=== PATIENT | female | born 1940 | race Caucasian/White ===

== ENCOUNTER 2017-05-09 15:09 | Inpatient (IN) | payer MEDICARE ==
[~2017-05-09] VITALS: Ht 157.5 cm; Wt 50.3 kg
--- NOTE | 2017-05-09 06:00 | NUR ---
continues to sleep. no distress noted.
[2017-05-09] MEDS ORDERED: Z GUARD REMEDY PASTE 57 GM TUBE TOP PRN (18:30)
[2017-05-09 20:00] VITALS: BP 109/52
[2017-05-09] MEDS ORDERED: ENOX40DI SQ (20:10)
[2017-05-09] MEDS ORDERED: METO-295 PO ×2 (20:10)
[2017-05-09] MEDS ORDERED: ASPI-605 PO (20:10)
[2017-05-09] MEDS ORDERED: SENN8.6T73 PO (20:10)
[2017-05-09] MEDS ORDERED: LORA1TAB PO (20:10)
[2017-05-09] MEDS ORDERED: HYDR-548 PO (20:10)
[2017-05-09] MEDS ORDERED: DOXE10CA2 PO (20:10)
[2017-05-09] MEDS ORDERED: PANT40TA4 PO (20:10)
[2017-05-09] MEDS ORDERED: POLY255P2 PO (20:10)
[2017-05-09] MEDS ORDERED: ONDA4TAB11 PO (20:10)
--- NOTE | 2017-05-09 20:12 | NUR ---
PT ADMITTED IN [facility] AT 1800. PT TAKEN ON A GURNEY. PT STABLE VITAL SIGNS. MED RECON DONE BY DR ROMAN. PT STATES THAT SHE IS HAVING STOMACH PAIN . INCISIONS PICTURES DONE. INITIAL PHYSICAL ASSESSMENT AND GENERAL QUESTIONS DONE. WILL CONTINUE TO ENDORSE ORDERS TO VEST MAKER NURSE.
[2017-05-09] MEDS ORDERED: BISACODYL 10 MG SUPP.RECT RC ONE (20:30)
[2017-05-09] MEDS ORDERED: LORAZEPAM 1 MG TABLET PO SCH (21:00)
[2017-05-09] MEDS ORDERED: DOXEPIN 10 MG CAPSULE PO SCH (21:45)
[2017-05-09] MEDS ORDERED: SENNOSIDES 1 TABLET PO SCH (21:45)
--- NOTE | 2017-05-09 22:00 | NUR ---
received to care, lying in bed, c/o severe constipation, anxiety, and pain. PRN dulcolax suppository was given at 2153. awaiting further orders.
[2017-05-09] MEDS: ONDANSETRON ODT 4 MG TAB.RAPDIS SL PRN (22:17)
[2017-05-09] MEDS ORDERED: SENNOSIDES 1 TABLET ONE (22:21)
[2017-05-09] MEDS ORDERED: ONDANSETRON HCL 4 MG TABLET ONE (22:21)
[2017-05-09] MEDS ORDERED: LORAZEPAM 1 MG TABLET ONE (22:22)
--- NOTE | 2017-05-09 23:00 | NUR ---
PRN zofran was given at 2216, for nausea, and PRN ativan was given at 2227, for anxiety. pt states some relief, but continues to request PRN pain medication. Dr JAMESON WAS PAGED.
[2017-05-10] MEDS ORDERED: HYDROMORPHONE HCL 2 MG TABLET PO PRN
--- NOTE | 2017-05-10 00:15 | NUR ---
PRN ORDER WAS GIVEN FOR NORCOFROM DR JAMESON, BUT PT IS ALLERGIC TO TYLENOL, CODEINE, AND HYDROCODONE, PER THE CHART. PT STATES THAT SHE Had BOTH NORCO, AND MORPHINE, AT [facility], WITHOUT ANY REACTIONS. DR YEPEZ WA SPAGED, AND HE GAVE AN ORDER FOR PRN DILAUDID, AND STATED IT WAS OK TO GIVE. MED WAS GIVEN AT THIS TIME, FOR LOWER ABDOMINAL PAIN 10/10, ON PAIN SCALE.
[2017-05-10] MEDS ORDERED: HYDROMORPHONE HCL 2 MG TABLET ONE (00:22)
--- NOTE | 2017-05-10 01:00 | NUR ---
APPEARS TO BE ASLEEP. NO DISTRESS NOTED.
[2017-05-10] MEDS ORDERED: PANTOPRAZOLE SODIUM 40 MG TABLET.DR PO SCH (07:00)
[2017-05-10 07:30] LABS: BASOPHILS % (AUTO) 0.1 % (0.0-2.0); EOSINOPHILS # (AUTO) 0.1 K/uL (0.0-0.7); EOSINOPHILS % (AUTO) 0.6 % (0.0-7.0); HEMATOCRIT 25.4 % (37-47); HEMOGLOBIN 8.7 G/DL (12.0-16.0); LYMPHOCYTES # (AUTO) 0.6 K/UL (0.8-4.8); LYMPHOCYTES % (AUTO) 4.4 % (20.5-51.5); MEAN CORPUSCULAR HEMOGLOBIN 31.9 UUG (27.0-31.0); MEAN CORPUSCULAR HGB CONC 34 g/dL (32.0-37.0); MEAN CORPUSCULAR VOLUME 93.1 FL (81.0-99.0); MONOCYTES # (AUTO) 1.1 K/UL (0.1-1.30); MONOCYTES % (AUTO) 8.4 % (0.0-11.0); NEUTROPHILS # (AUTO) 10.9 K/UL (1.8-8.9); NEUTROPHILS % (AUTO) 86.5 % (38.5-71.5); PLATELET COUNT (AUTO) 207 K/UL (150-450); RED BLOOD CELL COUNT(AUTO) 2.73 MIL/UL (4.2-5.4); WHITE BLOOD COUNT (AUTO) 12.7 K/UL (4.0-11.2)
[2017-05-10 08:08] LABS: ALKALINE PHOSPHATASE 61 U/L (50-136); ASPARTATE AMINOTRANSFERASE 21 U/L (15-37); BILIRUBIN,TOTAL 0.6 mg/dL (0.2-1.0); CARBON DIOXIDE 21 mmol/L (21-32); CHLORIDE 95 mmol/L (98-107); CHOLESTEROL 148 mg/dL (<200); CREATININE 4.5 mg/dL (0.6-1.3); GLUCOSE 111 mg/dL (74-106); HDL CHOLESTEROL 63 mg/dL (40-60); MAGNESIUM 2.1 mg/dL (1.8-2.4); PHOSPHOROUS 7.4 mg/dL (2.5-4.9); POTASSIUM 3.9 mmol/L (3.5-5.1); TOTAL PROTEIN, SERUM 6.1 g/dL (6.4-8.2); TRIGLYCERIDES 66 MG/DL (30-150); UREA NITROGEN, BLOOD 31 mg/dL (7-18)
[2017-05-10] MEDS ORDERED: MORPHINE SULFATE 4 MG/1 ML DISP.SYRIN IV PRN (08:15)
[2017-05-10 08:24] LABS: BAND % (MANUAL) 5 % (0-10); EOSINOPHILS % (MANUAL) 1 % (0-8); LYMPHOCYTES % (MANUAL) 7 % (20-40); MONOCYTES % (MANUAL) 13 % (2-10); NEUTROPHILS % (MANUAL) 74 % (42-75)
[2017-05-10] MEDS ORDERED: OXYCODONE/APAP 5-325 MG TABLET PO PRN (08:45)
[2017-05-10] MEDS: ONDANSETRON ODT 4 MG TAB.RAPDIS SL PRN (08:50)
[2017-05-10 08:59] LABS: ALANINE AMINOTRANSFERASE 17 U/L (14-59)
[2017-05-10] MEDS ORDERED: POLYETHYLENE GLYCOL 3350 238 GM POWDER PO SCH (09:00)
[2017-05-10] MEDS ORDERED: MIRALAX 17 GM POWD.PACK PO SCH (09:00)
[2017-05-10] MEDS ORDERED: ENOXAPARIN SODIUM 40 MG/0.4 ML DISP.SYRIN SQ SCH (09:00)
[2017-05-10] MEDS ORDERED: ASPIRIN EC 81 MG TABLET.DR PO SCH (09:00)
[2017-05-10 09:28] VITALS: BP 102/67
[2017-05-10 09:43] LABS: IRON, SERUM 10 ug/dL (50-175)
--- NOTE | 2017-05-10 10:50 | NUR ---
NURSING: PATIENT IS TRANSFERRED TO MED SURG UNIT, BED 225, PER DR. YEPEZ ORDER. NO DISTRESS NOTED. PT REMAINS ON O2 CANNULA AT 2LPM. REPORT GIVEN TO ROGER BECERRIL.
[2017-05-10 11:46] VITALS: BP 105/60
[2017-05-10] MEDS ORDERED: LORAZEPAM 1 MG TABLET PO SCH (21:00)
[2017-05-11 07:14] LABS: ALKALINE PHOSPHATASE 56 U/L (50-136); ASPARTATE AMINOTRANSFERASE 15 U/L (15-37); BILIRUBIN,TOTAL 0.4 mg/dL (0.2-1.0); CARBON DIOXIDE 24 mmol/L (21-32); CHLORIDE 108 mmol/L (98-107); GLUCOSE 116 mg/dL (74-106); MAGNESIUM 2.2 mg/dL (1.8-2.4); PHOSPHOROUS 1.8 mg/dL (2.5-4.9); POTASSIUM 3.5 mmol/L (3.5-5.1); TOTAL PROTEIN, SERUM 4.8 g/dL (6.4-8.2); UREA NITROGEN, BLOOD 13 mg/dL (7-18)
[2017-05-11 07:27] LABS: EOSINOPHILS # (AUTO) 0.1 K/uL (0.0-0.7); LYMPHOCYTES # (AUTO) 0.4 K/UL (0.8-4.8); MEAN CORPUSCULAR VOLUME 92.1 FL (81.0-99.0); MONOCYTES # (AUTO) 0.5 K/UL (0.1-1.30)
[2017-05-11 07:28] LABS: BASOPHILS % (AUTO) 0.2 % (0.0-2.0); EOSINOPHILS % (AUTO) 1.4 % (0.0-7.0); LYMPHOCYTES % (AUTO) 7.5 % (20.5-51.5); MEAN CORPUSCULAR HEMOGLOBIN 30.6 UUG (27.0-31.0); MEAN CORPUSCULAR HGB CONC 33 g/dL (32.0-37.0); MONOCYTES % (AUTO) 9.3 % (0.0-11.0); NEUTROPHILS # (AUTO) 4.7 K/UL (1.8-8.9); NEUTROPHILS % (AUTO) 81.6 % (38.5-71.5); PLATELET COUNT (AUTO) 173 K/UL (150-450)
[2017-05-11 07:33] LABS: RED BLOOD CELL COUNT(AUTO) 2.28 MIL/UL (4.2-5.4)
[2017-05-11 07:34] LABS: WHITE BLOOD COUNT (AUTO) 5.7 K/UL (4.0-11.2)
[2017-05-11 08:11] LABS: ALANINE AMINOTRANSFERASE 8 U/L (14-59)
[2017-05-12] MEDS ORDERED: MULT1TAB73 PO (11:43)
[2017-05-12] MEDS ORDERED: CALC-555 PO (11:43)
[2017-05-12] MEDS ORDERED: ALBU2.5V7 NEB (11:43)
--- NOTE | 2017-05-12 17:00 | NUR ---
RECEIVED PATIENT FROM MED-SURG UNIT IN STABLE CONDITION VIA HOSPITAL BED. IV D5NS 1L INFUSING WELL IN RIGHT ARM AT 80ML/HR. INTACT WYATT CATHETER DRAINING TO YELLOW COLORED URINE. WITH V/S OF T- 96.8 , RR- 14, IL-77 O2 SAT-98%, BP-135/87
[2017-05-12 20:00] VITALS: BP 120/71
[2017-05-12] MEDS ORDERED: SENNOSIDES 1 TABLET PO SCH (23:00)
[2017-05-12] MEDS ORDERED: ALBUTEROL SULFATE 2.5 MG/3 ML NEBU NEB PRN (23:00)
[2017-05-12] MEDS ORDERED: HYDROCODONE/APAP 10-325 MG TABLET ONE (23:47)
[2017-05-12] MEDS ORDERED: SENNOSIDES 1 TABLET ONE (23:47)
[2017-05-13] MEDS: HYDROCODONE/APAP 10-325 MG TABLET PO PRN (00:05)
[2017-05-13] MEDS: DOXEPIN 10 MG CAPSULE PO SCH ×2 (00:29→20:27)
[2017-05-13] MEDS ORDERED: DOXEPIN 10 MG CAPSULE ONE (00:34)
[2017-05-13] MEDS ORDERED: LORAZEPAM 1 MG TABLET ONE (00:35)
[2017-05-13] MEDS: LORAZEPAM 1 MG TABLET PO PRN (00:40)
[2017-05-13 08:00] VITALS: BP 124/83
[2017-05-13 08:05] LABS: BASOPHILS % (AUTO) 0.6 % (0.0-2.0); EOSINOPHILS # (AUTO) 0.3 K/uL (0.0-0.7); EOSINOPHILS % (AUTO) 4.6 % (0.0-7.0); HEMATOCRIT 32.1 % (37-47); HEMOGLOBIN 10.9 G/DL (12.0-16.0); LYMPHOCYTES # (AUTO) 1.2 K/UL (0.8-4.8); LYMPHOCYTES % (AUTO) 18.8 % (20.5-51.5); MEAN CORPUSCULAR HEMOGLOBIN 31.1 UUG (27.0-31.0); MEAN CORPUSCULAR HGB CONC 34 g/dL (32.0-37.0); MONOCYTES # (AUTO) 0.7 K/UL (0.1-1.30); MONOCYTES % (AUTO) 11.1 % (0.0-11.0); NEUTROPHILS # (AUTO) 4.2 K/UL (1.8-8.9); NEUTROPHILS % (AUTO) 64.9 % (38.5-71.5); RED BLOOD CELL COUNT(AUTO) 3.49 MIL/UL (4.2-5.4); WHITE BLOOD COUNT (AUTO) 6.4 K/UL (4.0-11.2)
[2017-05-13 08:11] LABS: PLATELET COUNT (AUTO) 269 K/UL (150-450)
[2017-05-13] MEDS: PANTOPRAZOLE SODIUM 40 MG TABLET.DR PO SCH (08:11)
[2017-05-13] MEDS ORDERED: Z GUARD REMEDY PASTE 57 GM TUBE TOP PRN (08:30)
[2017-05-13] MEDS ORDERED: MORPHINE SULFATE 4 MG/1 ML DISP.SYRIN IV PRN (08:30)
[2017-05-13] MEDS ORDERED: ONDANSETRON ODT 4 MG TAB.RAPDIS SL PRN (08:30)
[2017-05-13] MEDS ORDERED: OXYCODONE/APAP 5-325 MG TABLET PO PRN (08:30)
[2017-05-13 08:35] LABS: CARBON DIOXIDE 26 mmol/L (21-32); CHLORIDE 106 mmol/L (98-107); CREATININE 0.7 mg/dL (0.6-1.3); GLUCOSE 87 mg/dL (74-106); MAGNESIUM 1.9 mg/dL (1.8-2.4); PHOSPHOROUS 2.2 mg/dL (2.5-4.9); POTASSIUM 4.1 mmol/L (3.5-5.1); UREA NITROGEN, BLOOD 7 mg/dL (7-18)
[2017-05-13] MEDS: MIRALAX 17 GM POWD.PACK PO SCH (09:00)
[2017-05-13] MEDS: ASPIRIN EC 81 MG TABLET.DR PO SCH (09:00)
[2017-05-13] MEDS: MULTIVITAMINS,THERAPEUTIC TABLET PO SCH (09:05)
[2017-05-13] MEDS: CALCIUM CARB/VITAMIN D 500MG-200UNITS TABLET PO SCH (09:06)
[2017-05-13] MEDS ORDERED: NEUTRA PHOS PACKET PO ONE (09:15)
[2017-05-13] MEDS: ENOXAPARIN SODIUM 40 MG/0.4 ML DISP.SYRIN SQ SCH ×3 (09:21→11:32)
--- NOTE | 2017-05-13 14:51 | NUR ---
DAILY NOTE SHE IS ANXIOUS REGARDING THE SURGEON SEEING HER POST OP. PUT IN A CALL TO MD CYR OFFICE . TO SEE IF HE WILL BE ABLE TO COME IN TO SEE THE PT OR DOES HE WANT THE DRSG AND CECIL TO BE REMOVED BY THE NURSING STAFF. PT IS COMPLAINING THAT SHE WANTS THE CECIL OUT AND THE DRSG CHANGED. MD ROMAN MADE AWARE. SHE ALSO WANT THE F/C OUT MD MIRANDA PAGED. FOR THE RESPONSE. MD ROMAN IN TO SEE HER
--- NOTE | 2017-05-13 16:47 | NUR ---
DAILY NOTE F/C REMOVED ORDERED. REMOVED INTACT WITH 1300ML OF CLEAR YELLOW URINE. BRENT WELL. RIGHT HAND HEP LOC REMOVED INTACT ORDERED. BRENT WELL. SITE INTACT MIN BLEED. PT UP WITH SET UP OPERATOR FOR SHOWER. HIP DRSG REMOVED ORDERED REPLACED WITH TEGADERM FOR THE SHOW. WILL APPLY DRY DRSG ORDERED
--- NOTE | 2017-05-13 20:00 | NUR ---
NSG:Received to care, lying in bed, NO c/o pain or discomfort this time. resting in bed comfortably. call light w/in reach. continue monitoring for safety.
[2017-05-13 20:16] VITALS: BP 107/69
[2017-05-13] MEDS: SENNOSIDES 1 TABLET PO SCH (20:26)
[2017-05-14] MEDS: HYDROCODONE/APAP 10-325 MG TABLET PO PRN ×2 (03:01→09:48)
--- NOTE | 2017-05-14 03:09 | NUR ---
nsg: patient c/o hip pain.norco 10/325 mg po given.
--- NOTE | 2017-05-14 04:09 | NUR ---
NSG: patient stated i am feeling better now. prn effective for pain.
[2017-05-14] MEDS: PANTOPRAZOLE SODIUM 40 MG TABLET.DR PO SCH (06:01)
--- NOTE | 2017-05-14 06:15 | NUR ---
NSG: REMAIN CALM AND COOPERATIVE WITH MEDS AND CARE.ASSISTED WITH ADL'S. NO BM LAST NIGHT.SLEPT WELL. CONTINUE PLAN OF CARE.
--- NOTE | 2017-05-14 08:00 | NUR ---
PATIENT WITH OT. TOLERATING THERAPY WELL. NO S/S OF DISTRESS. ENCOURAGED TO MAKE NEEDS KNOWN
--- NOTE | 2017-05-14 09:15 | NUR ---
PATIENT COMPLAINED OF PAIN OVER INCISION SITE. PRN PAIN MEDICATIONS GIVEN UP WITH PHYSICAL THERAPY.
[2017-05-14] MEDS: ENOXAPARIN SODIUM 40 MG/0.4 ML DISP.SYRIN SQ SCH (09:44)
[2017-05-14] MEDS: MIRALAX 17 GM POWD.PACK PO SCH (09:48)
[2017-05-14] MEDS: ASPIRIN EC 81 MG TABLET.DR PO SCH (09:48)
[2017-05-14] MEDS: MULTIVITAMINS,THERAPEUTIC TABLET PO SCH (09:48)
[2017-05-14] MEDS: CALCIUM CARB/VITAMIN D 500MG-200UNITS TABLET PO SCH (09:48)
[2017-05-14] MEDS ORDERED: BISACODYL 10 MG SUPP.RECT RC PRN (17:15)
--- NOTE | 2017-05-14 18:40 | NUR ---
Patient still had no BM, Dulcolax 1 Supp. given
[2017-05-14 20:07] VITALS: BP 136/64
[2017-05-14] MEDS: SENNOSIDES 1 TABLET PO SCH (21:26)
[2017-05-14] MEDS: DOXEPIN 10 MG CAPSULE PO SCH (21:26)
[2017-05-14] MEDS: LORAZEPAM 1 MG TABLET PO PRN (22:23)
[2017-05-15] MEDS: PANTOPRAZOLE SODIUM 40 MG TABLET.DR PO SCH (06:50)
--- NOTE | 2017-05-15 07:00 | NUR ---
pt finally had a bm last night, voiding well,assisted to toilet with walker. sits in the wheelchair for all meals. right leg with bruising ,dressing intact and dry.slept well overnight, call light at reached.
[2017-05-15 07:48] LABS: THYROID STIMULATING HORMONE 3.027 mIU/mL (0.358-3.740)
[2017-05-15 08:00] VITALS: BP 110/75
[2017-05-15] MEDS: ASPIRIN EC 81 MG TABLET.DR PO SCH (08:21)
[2017-05-15] MEDS: CALCIUM CARB/VITAMIN D 500MG-200UNITS TABLET PO SCH (08:21)
[2017-05-15] MEDS: MULTIVITAMINS,THERAPEUTIC TABLET PO SCH (08:21)
[2017-05-15] MEDS: MIRALAX 17 GM POWD.PACK PO SCH (08:21)
[2017-05-15] MEDS: HYDROCODONE/APAP 10-325 MG TABLET PO PRN (08:22)
[2017-05-15] MEDS: ENOXAPARIN SODIUM 40 MG/0.4 ML DISP.SYRIN SQ SCH (08:36)
--- NOTE | 2017-05-15 08:36 | NUR ---
Lovenox 40mg SQ scheduled as per order. Problem with ROGER Fox's TR[employer] TO [employer]BATE password, unable to cosign medication administration. Multiple passwords attempted, unsuccessful. Informed Lyndsay to call the [employer] Help[employer] to reset password, and reviewed medication with her before administration. Cosignature received from ROGER Lawrence, who witnessed medication verification. Medication administered to patient, no signs of distress noted, no immediate reaction to medication observed.
[2017-05-15] MEDS: SOD FERRIC GLUC COMPLX/SUCROSE 125 MG in IV NORMAL SALINE 100 ML IV SCH (16:14)
--- NOTE | 2017-05-15 17:47 | NUR ---
PT. SITTING UP IN CHAIR MOST OF SHIFT AND PARTICIPATED IN O.T. AND P.T. SESSION TODAY WITH GOOD TOLERANCE. IV IRON INFUSED WITH NO UNTOWARD EFFECT. GOOD APPETITE AND VOIDING WELL. NO ACUTE DISTRESS NOTED.
[2017-05-15 20:00] VITALS: BP 104/62
[2017-05-15] MEDS: SENNOSIDES 1 TABLET PO SCH (20:51)
[2017-05-15] MEDS: DOXEPIN 10 MG CAPSULE PO SCH (20:51)
[2017-05-15] MEDS: LORAZEPAM 1 MG TABLET PO PRN (21:40)
[2017-05-16] MEDS: PANTOPRAZOLE SODIUM 40 MG TABLET.DR PO SCH (06:49)
[2017-05-16 07:07] LABS: *IMMUNOGLOBULIN G, SERUM 600 mg/dL (700-1600); IMMUNOGLOBULIN A, SERUM 164 mg/dL (64-422); IMMUNOGLOBULIN M, SERUM 20 mg/dL (26-217)
--- NOTE | 2017-05-16 07:19 | NUR ---
Patient received from shift boss RN. Patient resting comfortably in bed, no signs of acute distress noted. VS WNL, no complaints of pain at this time. No other verbalized needs at this time. IV HL site to right FA, no signs of redness or swelling noted. All safety and fall precautions maintained. Call light within reach.
[2017-05-16 08:00] VITALS: BP 114/77
[2017-05-16] MEDS: ASPIRIN EC 81 MG TABLET.DR PO SCH (09:00)
[2017-05-16] MEDS: CALCIUM CARB/VITAMIN D 500MG-200UNITS TABLET PO SCH (09:00)
[2017-05-16] MEDS: MIRALAX 17 GM POWD.PACK PO SCH (09:00)
[2017-05-16] MEDS: MULTIVITAMINS,THERAPEUTIC TABLET PO SCH (09:00)
[2017-05-16] MEDS: ENOXAPARIN SODIUM 40 MG/0.4 ML DISP.SYRIN SQ SCH (09:02)
[2017-05-16 11:07] LABS: A/G RATIO 1.1 (0.7-1.7); ALBUMIN 3.2 g/dL (2.9-4.4); ALPHA-1-GLOBULIN 0.4 g/dL (0.0-0.4); ALPHA-2-GLOBULIN 0.8 g/dL (0.4-1.0); BETA GLOBULIN 1.1 g/dL (0.7-1.3); GAMMA GLOBULIN 0.5 g/dL (0.4-1.8); GLOBULIN, TOTAL 2.9 g/dL (2.2-3.9); M-SPIKE Not Observed g/dL (Not Observed)
--- NOTE | 2017-05-16 11:40 | NUR ---
Director Critical Care: SW met with patient at bedside to assess needs and provide support. Pt is a 76-year-old female admitted to ARU for an acute kidney injury. Per pt, she fell at home in the bathroom while trying to seed cone picker an earring that had fell off. She reported that prior to being hospitalized she was very independent and did not use an DME's at home. Per pt, she has never needed a caregiver and has always been able to ambulate. She reported to live at home alone, and stated she has one daughter who lives in [place]. Per pt, she is and has a small support system. Pt reported that her family members are not local and live far. 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 She also stated that she use to hike and abdiel dive often. Pt appeared disappointed in her loss of ambulation. She expressed concerns about returning home soon, and reported she does not feel she has regained her ambulation back. Per pt, she is also concerned that she may have Cancer due to blood work that was done while on med/surg. Pt appeared depressed, fatigued, and worried during interview. SW acknowledged pt's concerns and will continue to address issues of loss related to recent fall. SW provided supportive counseling to address patients issues of loss related to her inability to walk. SW will provide linkage to resources (case management).
[2017-05-16] MEDS: HYDROCODONE/APAP 10-325 MG TABLET PO PRN (12:11)
[2017-05-16] MEDS: SOD FERRIC GLUC COMPLX/SUCROSE 125 MG in IV NORMAL SALINE 100 ML IV SCH (16:07)
[2017-05-16 20:11] VITALS: BP 102/61
[2017-05-16] MEDS: LORAZEPAM 1 MG TABLET PO PRN (21:27)
[2017-05-16] MEDS: DOXEPIN 10 MG CAPSULE PO SCH (21:28)
[2017-05-16] MEDS: SENNOSIDES 1 TABLET PO SCH (21:28)
[2017-05-17] MEDS: PANTOPRAZOLE SODIUM 40 MG TABLET.DR PO SCH (06:40)
[2017-05-17 08:12] LABS: BASOPHILS # (AUTO) 0.1 K/uL (0.0-8.0); BASOPHILS % (AUTO) 0.7 % (0.0-2.0); EOSINOPHILS # (AUTO) 0.2 K/uL (0.0-0.7); EOSINOPHILS % (AUTO) 2.8 % (0.0-7.0); HEMATOCRIT 32.2 % (37-47); HEMOGLOBIN 10.8 G/DL (12.0-16.0); LYMPHOCYTES # (AUTO) 0.9 K/UL (0.8-4.8); MEAN CORPUSCULAR HEMOGLOBIN 31.4 UUG (27.0-31.0); MEAN CORPUSCULAR HGB CONC 34 g/dL (32.0-37.0); MEAN CORPUSCULAR VOLUME 93.5 FL (81.0-99.0); MONOCYTES # (AUTO) 0.7 K/UL (0.1-1.30); MONOCYTES % (AUTO) 9.1 % (0.0-11.0); NEUTROPHILS # (AUTO) 6.1 K/UL (1.8-8.9); NEUTROPHILS % (AUTO) 76.4 % (38.5-71.5); PLATELET COUNT (AUTO) 387 K/UL (150-450); RED BLOOD CELL COUNT(AUTO) 3.45 MIL/UL (4.2-5.4)
[2017-05-17 08:21] LABS: ALANINE AMINOTRANSFERASE 17 U/L (14-59); ALKALINE PHOSPHATASE 79 U/L (50-136); ASPARTATE AMINOTRANSFERASE 22 U/L (15-37); BILIRUBIN,TOTAL 0.5 mg/dL (0.2-1.0); CARBON DIOXIDE 26 mmol/L (21-32); CHLORIDE 102 mmol/L (98-107); CREATININE 0.7 mg/dL (0.6-1.3); GLUCOSE 99 mg/dL (74-106); TOTAL PROTEIN, SERUM 6.1 g/dL (6.4-8.2); UREA NITROGEN, BLOOD 13 mg/dL (7-18)
[2017-05-17] MEDS: HYDROCODONE/APAP 10-325 MG TABLET PO PRN ×2 (08:31→18:10)
[2017-05-17] MEDS: ENOXAPARIN SODIUM 40 MG/0.4 ML DISP.SYRIN SQ SCH (08:31)
[2017-05-17] MEDS: MULTIVITAMINS,THERAPEUTIC TABLET PO SCH (08:32)
[2017-05-17] MEDS: CALCIUM CARB/VITAMIN D 500MG-200UNITS TABLET PO SCH (08:32)
[2017-05-17] MEDS: ASPIRIN EC 81 MG TABLET.DR PO SCH (08:32)
[2017-05-17] MEDS: MIRALAX 17 GM POWD.PACK PO SCH (08:33)
[2017-05-17 09:25] LABS: BAND % (MANUAL) 3 % (0-10); EOSINOPHILS % (MANUAL) 4 % (0-8); LYMPHOCYTES % (MANUAL) 13 % (20-40); MONOCYTES % (MANUAL) 11 % (2-10); NEUTROPHILS % (MANUAL) 69 % (42-75)
[2017-05-17 10:04] VITALS: BP 111/79
[2017-05-17 10:09] LABS: ANGIOTENSION CONVERTING ENZYME 18 U/L (14-82)
--- NOTE | 2017-05-17 14:09 | NUR ---
TEAM CONFERENCE MEETING 05/17/17
[2017-05-17] MEDS: SOD FERRIC GLUC COMPLX/SUCROSE 125 MG in IV NORMAL SALINE 100 ML IV SCH (14:25)
--- NOTE | 2017-05-17 17:32 | NUR ---
PT. OOB TO CHAIR AND AMBULATING TO BR WITH WALKER AND 1 PERS ASSIST. P.T/O.T. TX. GOOD APPETITE. DRESSING CHANGED TO R. HIP INCISON. TEAM CONFERENCE TODAY. NO ACUTE DISTRESS NOTED. Addendum: 05/17/17 at 1824 by ROBERTO KO RN PT. 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
[2017-05-17 19:56] VITALS: BP 114/71
[2017-05-17] MEDS: DOXEPIN 10 MG CAPSULE PO SCH (20:14)
[2017-05-17] MEDS: SENNOSIDES 1 TABLET PO SCH (20:15)
[2017-05-17] MEDS: LORAZEPAM 1 MG TABLET PO PRN (21:43)
[2017-05-18] MEDS: PANTOPRAZOLE SODIUM 40 MG TABLET.DR PO SCH (06:47)
[2017-05-18 08:04] VITALS: BP 119/72
--- NOTE | 2017-05-18 08:45 | NUR ---
Received patient awake, alert and oriented x4. No s/s of distress. With tolerable pain over R hip operative site. Offered pain medications but refused. Call light within reach. Assisted to wheelchair for breakfast.
[2017-05-18] MEDS: MIRALAX 17 GM POWD.PACK PO SCH (09:42)
[2017-05-18] MEDS: CALCIUM CARB/VITAMIN D 500MG-200UNITS TABLET PO SCH (09:42)
[2017-05-18] MEDS: ASPIRIN EC 81 MG TABLET.DR PO SCH (09:42)
[2017-05-18] MEDS: MULTIVITAMINS,THERAPEUTIC TABLET PO SCH (09:42)
[2017-05-18] MEDS: ENOXAPARIN SODIUM 40 MG/0.4 ML DISP.SYRIN SQ SCH (09:43)
--- NOTE | 2017-05-18 14:23 | NUR ---
COMPLAINED OF PAIN OVER R HIP SURGICAL SITE RATED 8/10. PRN PAIN MEDICATION GIVEN
[2017-05-18] MEDS: SOD FERRIC GLUC COMPLX/SUCROSE 125 MG in IV NORMAL SALINE 100 ML IV SCH (14:24)
[2017-05-18] MEDS: HYDROCODONE/APAP 10-325 MG TABLET PO PRN (14:25)
--- NOTE | 2017-05-18 15:26 | NUR ---
Surgical dressing changed.
--- NOTE | 2017-05-18 19:00 | NUR ---
RECEIVED PATIENT IN BED, ALERT ORIENTED, NO SOB NO CHEST PAIN NOTED. COMPLAIN OF MILD PAIN OF RIGHT HIP, BUT PREFER TO TAKE ATIVAN INSTEAD OF PAIN MEDS. CALL LIGHT WITHIN REACH,
[2017-05-18] MEDS: SENNOSIDES 1 TABLET PO SCH (21:00)
[2017-05-18 21:02] VITALS: BP 98/64
[2017-05-18] MEDS: DOXEPIN 10 MG CAPSULE PO SCH (22:08)
[2017-05-18] MEDS: LORAZEPAM 1 MG TABLET PO PRN (22:12)
[2017-05-19] MEDS: PANTOPRAZOLE SODIUM 40 MG TABLET.DR PO SCH (06:08)
--- NOTE | 2017-05-19 07:00 | NUR ---
Received report from night club manager nurse, pt slept well, no c/o painwill continue to monitor.
--- NOTE | 2017-05-19 07:03 | NUR ---
PATIENT SLEPT MOST OF THE NIGHT, NO SOB NO CHEST PAIN NOTED, REQUESTED ATIVAN FOR ANXIETY WITH HELP, NO ADVERSE SIDE NOTED, KEPT CLEAN AND DRY, NO S/S OF DISTRESS. DVT PUMP IN PLACE.
--- NOTE | 2017-05-19 07:20 | NUR ---
RECEIVED REPORT FROM LEARNING ANALYST NURSE, PT SELPTS WELL, NO C/O PAIN NO DISTRESS, WILL CONT TO MONITOR.
[2017-05-19] MEDS: ENOXAPARIN SODIUM 40 MG/0.4 ML DISP.SYRIN SQ SCH (09:00)
[2017-05-19] MEDS: MULTIVITAMINS,THERAPEUTIC TABLET PO SCH (09:18)
[2017-05-19] MEDS: ASPIRIN EC 81 MG TABLET.DR PO SCH (09:18)
[2017-05-19] MEDS: CALCIUM CARB/VITAMIN D 500MG-200UNITS TABLET PO SCH (09:19)
[2017-05-19] MEDS: MIRALAX 17 GM POWD.PACK PO SCH (09:19)
[2017-05-19] MEDS: HYDROCODONE/APAP 10-325 MG TABLET PO PRN (09:20)
[2017-05-19 09:30] VITALS: BP 104/66
[2017-05-19] MEDS: SOD FERRIC GLUC COMPLX/SUCROSE 125 MG in IV NORMAL SALINE 100 ML IV SCH (15:41)
[2017-05-19] MEDS: LORAZEPAM 1 MG TABLET PO PRN (15:50)
--- NOTE | 2017-05-19 15:51 | NUR ---
PT ANXIOUS, HYPERVERBAL, GAVE ATIVAN 1MG PO, WILL CONTINUE TO MONITOR.
--- NOTE | 2017-05-19 17:16 | NUR ---
PT CALM/QUIET, IV PIGGY BACK FERRLECIT FINISHED, HUNG BY ROGER BESS, NO ADVERSE REACTION NOTED. PT EATING DINNER CALL LIGHT IN REACH.
--- NOTE | 2017-05-19 18:17 | NUR ---
CALLED DR ROMAN INFORMED HIM SURGEON HAS NOT CALLED BACK REGARDING CECIL, INFORMED HE WOULD VISIT PT THIS EVENING. WILL ENDORSE TO MOBILE APPLICATION ARCHITECT NURSE.
[2017-05-19 20:16] VITALS: BP 99/74
[2017-05-19] MEDS: DOXEPIN 10 MG CAPSULE PO SCH (20:29)
[2017-05-19] MEDS: SENNOSIDES 1 TABLET PO SCH (20:29)
[2017-05-19] MEDS ORDERED: LORAZEPAM 1 MG TABLET PO ONE (22:00)
--- NOTE | 2017-05-20 05:20 | NUR ---
PT SLEPT WELL THROUGH THE NIGHT AND WAS EASILY AWOKEN, PT WHILE RESTING DID NOT COMPLAIN OF ANY PAIN BUT WHILE MOVING AROUND AND WALKING PT DID HAVE SLIGHT PAIN, PT REFUSED ANY PAIN MEDICATION. PT IS ABLE TO WALK WITH WALKER TO THE RESTROOM WITH STAND BY ASSISTANCE, PT IS SLIGHTLY UNSTEADY ON HER FEET. ALL NEEDS MET, SAFETY MEASURES ARE IN PLACE, CALL LIGHT WITHIN REACH, BED ALARM IS ON.
[2017-05-20] MEDS: PANTOPRAZOLE SODIUM 40 MG TABLET.DR PO SCH (06:07)
[2017-05-20 07:50] LABS: BASOPHILS % (AUTO) 0.6 % (0.0-2.0); EOSINOPHILS # (AUTO) 0.2 K/uL (0.0-0.7); HEMATOCRIT 34.4 % (37-47); HEMOGLOBIN 11.2 G/DL (12.0-16.0); LYMPHOCYTES # (AUTO) 0.8 K/UL (0.8-4.8); LYMPHOCYTES % (AUTO) 10.5 % (20.5-51.5); MEAN CORPUSCULAR HEMOGLOBIN 30.6 UUG (27.0-31.0); MEAN CORPUSCULAR HGB CONC 33 g/dL (32.0-37.0); MEAN CORPUSCULAR VOLUME 94.3 FL (81.0-99.0); MONOCYTES # (AUTO) 0.6 K/UL (0.1-1.30); NEUTROPHILS # (AUTO) 6.1 K/UL (1.8-8.9); NEUTROPHILS % (AUTO) 77.9 % (38.5-71.5); PLATELET COUNT (AUTO) 385 K/UL (150-450); RED BLOOD CELL COUNT(AUTO) 3.65 MIL/UL (4.2-5.4); WHITE BLOOD COUNT (AUTO) 7.7 K/UL (4.0-11.2)
[2017-05-20 08:00] VITALS: BP 111/75
[2017-05-20 08:00] LABS: CARBON DIOXIDE 27 mmol/L (21-32); CHLORIDE 103 mmol/L (98-107); CREATININE 0.8 mg/dL (0.6-1.3); GLUCOSE 92 mg/dL (74-106); MAGNESIUM 2.2 mg/dL (1.8-2.4); PHOSPHOROUS 3.3 mg/dL (2.5-4.9); UREA NITROGEN, BLOOD 13 mg/dL (7-18)
[2017-05-20] MEDS: MULTIVITAMINS,THERAPEUTIC TABLET PO SCH (09:13)
[2017-05-20] MEDS: CALCIUM CARB/VITAMIN D 500MG-200UNITS TABLET PO SCH (09:13)
[2017-05-20] MEDS: ASPIRIN EC 81 MG TABLET.DR PO SCH (09:13)
[2017-05-20] MEDS: ENOXAPARIN SODIUM 40 MG/0.4 ML DISP.SYRIN SQ SCH (09:13)
[2017-05-20] MEDS: MIRALAX 17 GM POWD.PACK PO SCH (09:14)
[2017-05-20] MEDS: HYDROCODONE/APAP 10-325 MG TABLET PO PRN (12:21)
[2017-05-20 13:04] LABS: *OCCULT BLOOD STOOL NEGATIVE (NEGATIVE)
[2017-05-20] MEDS: SOD FERRIC GLUC COMPLX/SUCROSE 125 MG in IV NORMAL SALINE 100 ML IV SCH (14:23)
--- NOTE | 2017-05-20 16:39 | NUR ---
Explained to daughter of patient re: request for shower not able to be met at this time for [employer] night routine. Daughter insists on shower now. Will ask pm shift assist.
--- NOTE | 2017-05-20 18:46 | NUR ---
Handoff report for night nurse. Patient given as needed Sanders medication with physical therapy. Patient had some susanna taken and some left intact by Doctor MD Eri, during his rounds.
[2017-05-20 20:00] VITALS: BP 99/65
--- NOTE | 2017-05-20 20:00 | NUR ---
RECEIVED PT ALERT & ORIENTED X3. DENIES PAIN. HEP LOCK INTACT ON R FA INTACT & PATENT. NOT IN ANY DISTRESS.
--- NOTE | 2017-05-20 21:00 | NUR ---
ASSISTED TO BATH RM. HS CARE DONE W/ MINIMAL ASSISTANCE.
[2017-05-20] MEDS: DOXEPIN 10 MG CAPSULE PO SCH (21:11)
[2017-05-20] MEDS: SENNOSIDES 1 TABLET PO SCH (21:11)
[2017-05-20] MEDS: LORAZEPAM 1 MG TABLET PO PRN (21:49)
--- NOTE | 2017-05-20 21:50 | NUR ---
ATIVAN 1MG GIVEN PO PER PT. REQUEST.
[2017-05-21] MEDS: PANTOPRAZOLE SODIUM 40 MG TABLET.DR PO SCH (06:25)
--- NOTE | 2017-05-21 06:30 | NUR ---
AWAKE. ASSISTED TO BATH RM ON WALKER. NOT IN ANY DISTRESS.
[2017-05-21 08:00] VITALS: BP 118/75
[2017-05-21] MEDS: MIRALAX 17 GM POWD.PACK PO SCH (09:02)
[2017-05-21] MEDS: ENOXAPARIN SODIUM 40 MG/0.4 ML DISP.SYRIN SQ SCH (09:02)
[2017-05-21] MEDS: CALCIUM CARB/VITAMIN D 500MG-200UNITS TABLET PO SCH (09:03)
[2017-05-21] MEDS: MULTIVITAMINS,THERAPEUTIC TABLET PO SCH (09:03)
[2017-05-21] MEDS: ASPIRIN EC 81 MG TABLET.DR PO SCH (09:03)
[2017-05-21] MEDS: HYDROCODONE/APAP 10-325 MG TABLET PO PRN ×2 (10:11→16:24)
[2017-05-21] MEDS: SOD FERRIC GLUC COMPLX/SUCROSE 125 MG in IV NORMAL SALINE 100 ML IV SCH (14:17)
[2017-05-21 20:00] VITALS: BP 97/62
[2017-05-21] MEDS: DOXEPIN 10 MG CAPSULE PO SCH (21:10)
[2017-05-21] MEDS: SENNOSIDES 1 TABLET PO SCH (21:10)
[2017-05-21] MEDS: LORAZEPAM 1 MG TABLET PO PRN (21:59)
[2017-05-22] MEDS: PANTOPRAZOLE SODIUM 40 MG TABLET.DR PO SCH (06:28)
[2017-05-22 08:00] VITALS: BP 133/66
[2017-05-22] MEDS: CALCIUM CARB/VITAMIN D 500MG-200UNITS TABLET PO SCH (08:45)
[2017-05-22] MEDS: ASPIRIN EC 81 MG TABLET.DR PO SCH (08:45)
[2017-05-22] MEDS: MULTIVITAMINS,THERAPEUTIC TABLET PO SCH (08:45)
[2017-05-22] MEDS: MIRALAX 17 GM POWD.PACK PO SCH (08:49)
[2017-05-22] MEDS: ENOXAPARIN SODIUM 40 MG/0.4 ML DISP.SYRIN SQ SCH (08:51)
[2017-05-22] MEDS: HYDROCODONE/APAP 10-325 MG TABLET PO PRN (13:19)
--- NOTE | 2017-05-22 13:40 | NUR ---
Pt reassignment and full SBAR report given to ROGER Salmeron.
[2017-05-22] MEDS: SOD FERRIC GLUC COMPLX/SUCROSE 125 MG in IV NORMAL SALINE 100 ML IV SCH (14:26)
--- NOTE | 2017-05-22 19:30 | NUR ---
RECEIVED PATIENT AWAKE, ALERT, AND ORIENTED X 3. NO C/O PAIN, BUT DOES C/O SOME STIFFNESS TONIGHT AFTER NOT MOVING IN BED MUCH SHE HAS BEEN. IS TIRED TODAY FROM PHYSICAL THERAPY, AND WAS RESTING LATE THIS AFTER NOON TOO LONG SHE SAID. OOB TO AMBULATE WITH WALKER AND STANDBY ASSIST TO HELP WITH THE STIFFNESS. DOES NOT WANT ANY PAIN MEDS AT THIS TIME. PM CARE DONE PATIENT STATES SHE WILL BE GOING HOME ON MONDAY.ENCOURAGED TO BE INDEPENDENT POSSIBLE WITH ADL'S. RIGHT HIP SURGICAL SITE WITH STERI STRIPS INTACT, A COUPLE OF CECIL INTACT. JENNIFER WITHOUT ANY DRAINAGE AT INCISIONAL SITE. INSTRUCTED TO CALL RN FOR ANY NEEDS OR REQUESTS. VERBALIZES GOOD UNDERSTANDING. CALL LIGHT WITHIN REACH AAT
[2017-05-22 20:00] VITALS: BP 98/55
[2017-05-22] MEDS: SENNOSIDES 1 TABLET PO SCH (21:00)
[2017-05-22] MEDS: DOXEPIN 10 MG CAPSULE PO SCH (21:26)
[2017-05-22] MEDS: LORAZEPAM 1 MG TABLET PO PRN (21:44)
--- NOTE | 2017-05-23 06:00 | NUR ---
SLEPT WELL LAST NIGHT AFTER ATIVAN GIVEN. COMFORTABLE THIS MORNING.ADEQUATE CSM TO RIGHT TOES. NO DRAINAGE FROM RIGHT HIP SURGICAL SITE. AM CARE DONE. HAD SOFT BROWN BM THIS MORNING. SITTING UP IN CHAIR WITHOUT C/O AT THIS TIME
[2017-05-23] MEDS: PANTOPRAZOLE SODIUM 40 MG TABLET.DR PO SCH (06:15)
[2017-05-23 07:30] VITALS: BP 107/72
--- NOTE | 2017-05-23 07:30 | NUR ---
Received patient awake, sitting on wheelchair, alert, verbally responsive, coherent, able to make needs known, not in any form of acute distress. She denies any pain or discomfort. Environmental safety check done. Reminded to use call light for assistance. Call light placed within reach. Assisted to her needs.
[2017-05-23] MEDS: MIRALAX 17 GM POWD.PACK PO SCH (09:00)
[2017-05-23] MEDS: MULTIVITAMINS,THERAPEUTIC TABLET PO SCH (09:45)
[2017-05-23] MEDS: CALCIUM CARB/VITAMIN D 500MG-200UNITS TABLET PO SCH (09:45)
[2017-05-23] MEDS: ASPIRIN EC 81 MG TABLET.DR PO SCH (09:45)
[2017-05-23] MEDS: ENOXAPARIN SODIUM 40 MG/0.4 ML DISP.SYRIN SQ SCH (09:55)
[2017-05-23] MEDS: HYDROCODONE/APAP 10-325 MG TABLET PO PRN (14:51)
--- NOTE | 2017-05-23 19:25 | NUR ---
Patient in room laying down on bed with no distress noted. Has surgical incision on right hip area with steri strips intact,clean and dry. No signs of redness and swelling on surgical site. Denies pain,SOB,N/V at this time. Able to ambulate with stand by assist with use of walker
[2017-05-23] MEDS: DOXEPIN 10 MG CAPSULE PO SCH (20:54)
[2017-05-23] MEDS: SENNOSIDES 1 TABLET PO SCH (20:55)
[2017-05-23 21:43] VITALS: BP 112/67
[2017-05-23] MEDS: LORAZEPAM 1 MG TABLET PO PRN (21:54)
[2017-05-24] MEDS: PANTOPRAZOLE SODIUM 40 MG TABLET.DR PO SCH (06:47)
[2017-05-24 08:00] VITALS: BP 94/56
[2017-05-24] MEDS: ASPIRIN EC 81 MG TABLET.DR PO SCH (08:28)
[2017-05-24] MEDS: CALCIUM CARB/VITAMIN D 500MG-200UNITS TABLET PO SCH (08:28)
[2017-05-24] MEDS: MULTIVITAMINS,THERAPEUTIC TABLET PO SCH (08:28)
[2017-05-24] MEDS: MIRALAX 17 GM POWD.PACK PO SCH (08:28)
[2017-05-24] MEDS: ENOXAPARIN SODIUM 40 MG/0.4 ML DISP.SYRIN SQ SCH (08:29)
[2017-05-24] MEDS: HYDROCODONE/APAP 10-325 MG TABLET PO PRN (11:56)
--- NOTE | 2017-05-24 19:07 | NUR ---
Patient in room with no distress noted. Ambulatory with walker. Incision site with steri strip with no redness and swelling noted
[2017-05-24] MEDS: SENNOSIDES 1 TABLET PO SCH (21:34)
[2017-05-24] MEDS: DOXEPIN 10 MG CAPSULE PO SCH (21:34)
[2017-05-24] MEDS: LORAZEPAM 1 MG TABLET PO PRN (22:15)
[2017-05-25] MEDS: PANTOPRAZOLE SODIUM 40 MG TABLET.DR PO SCH (06:33)
[2017-05-25 08:07] LABS: BASOPHILS % (AUTO) 0.9 % (0.0-2.0); EOSINOPHILS # (AUTO) 0.2 K/uL (0.0-0.7); EOSINOPHILS % (AUTO) 3.9 % (0.0-7.0); HEMATOCRIT 35.4 % (37-47); HEMOGLOBIN 11.8 G/DL (12.0-16.0); LYMPHOCYTES # (AUTO) 0.7 K/UL (0.8-4.8); LYMPHOCYTES % (AUTO) 14.4 % (20.5-51.5); MEAN CORPUSCULAR HEMOGLOBIN 31.9 UUG (27.0-31.0); MEAN CORPUSCULAR HGB CONC 33 g/dL (32.0-37.0); MONOCYTES # (AUTO) 0.6 K/UL (0.1-1.30); MONOCYTES % (AUTO) 11.6 % (0.0-11.0); NEUTROPHILS # (AUTO) 3.5 K/UL (1.8-8.9); NEUTROPHILS % (AUTO) 69.2 % (38.5-71.5); PLATELET COUNT (AUTO) 361 K/UL (150-450); RED BLOOD CELL COUNT(AUTO) 3.69 MIL/UL (4.2-5.4)
[2017-05-25 08:41] VITALS: BP 107/73
[2017-05-25] MEDS: ASPIRIN EC 81 MG TABLET.DR PO SCH (08:44)
[2017-05-25] MEDS: CALCIUM CARB/VITAMIN D 500MG-200UNITS TABLET PO SCH (08:44)
[2017-05-25] MEDS: MIRALAX 17 GM POWD.PACK PO SCH (08:44)
[2017-05-25] MEDS: MULTIVITAMINS,THERAPEUTIC TABLET PO SCH (08:44)
--- NOTE | 2017-05-25 08:46 | NUR ---
Patient noted in stable condition.assisted to the bathroom with walker.all due meds as well as nursing care given and well tolerated.patient refused miralax at this time stating she does not need it.patient denies pain,discomfort at this time.will be continued to be monitored
[2017-05-25] MEDS: HYDROCODONE/APAP 10-325 MG TABLET PO PRN (11:11)
--- NOTE | 2017-05-25 15:23 | NUR ---
Patient noted in stable condition.prescription medication given to patient.education given to patient about medication prescription with verbalization of understanding noted.daughter noted with patient at time of discharge .
== END 2017-05-25 14:45 | disposition home health service (06) | DRG 559 ==
LOC: MED 05-10 10:34 → SA1 05-10 12:22 → MED 05-10 12:24 → SA1 05-10 13:16 → UNDOLOA 05-10 13:31 → SA1 05-10 14:36
PROVIDERS: ADMIT Physical Medicine & Rehabilitation Pain Medicine; ATTEND Physical Medicine & Rehabilitation Pain Medicine
DX: S72.041D Displaced fracture of base of neck of right femur, subsequent encounter for closed fracture with routine healing (principal); N17.0 Acute kidney failure with tubular necrosis; E43 Unspecified severe protein-calorie malnutrition; D68.59 Other primary thrombophilia; E87.1 Hypo-osmolality and hyponatremia; R18.8 Other ascites; N13.30 Unspecified hydronephrosis; W18.30XD Fall on same level, unspecified, subsequent encounter; D72.829 Elevated white blood cell count, unspecified; E83.39 Other disorders of phosphorus metabolism; E83.51 Hypocalcemia; E87.6 Hypokalemia; K56.41 Fecal impaction; Z87.891 Personal history of nicotine dependence; Z88.6 Allergy status to analgesic agent; F32.9 Major depressive disorder, single episode, unspecified; G47.00 Insomnia, unspecified; R26.2 Difficulty in walking, not elsewhere classified; R73.9 Hyperglycemia, unspecified; Z85.828 Personal history of other malignant neoplasm of skin; D50.9 Iron deficiency anemia, unspecified; F41.9 Anxiety disorder, unspecified; K42.9 Umbilical hernia without obstruction or gangrene; K44.9 Diaphragmatic hernia without obstruction or gangrene; M41.9 Scoliosis, unspecified; M47.814 Spondylosis without myelopathy or radiculopathy, thoracic region; M47.896 Other spondylosis, lumbar region; R73.03 Prediabetes; R16.0 Hepatomegaly, not elsewhere classified; R42 Dizziness and giddiness; R60.1 Generalized edema; Z88.8 Allergy status to other drugs, medicaments and biological substances; R26.9 Unspecified abnormalities of gait and mobility; D25.2 Subserosal leiomyoma of uterus; Q63.2 Ectopic kidney
CPT/HCPCS: 36415; 76770; 82306; 82746; 82784; 83550; 83615; 83735; 84100; 84155; 84165; 84443; 85025; 86140; 86334; 92523; 97110; 97112; 97116; 97161; 97165; 97530; 97535; A4217; A4663; J1650; J2916; J3490; J7050; Q0162

== ENCOUNTER 2017-05-10 10:45 | Inpatient (IN) | payer MEDICARE ==
[~2017-05-10 10:45] MED LIST: ASPI-605 PO; DOXE10CA2 PO; ENOX40DI SQ; HYDR-548 PO; LORA1TAB PO; METO-295 PO; ONDA4TAB11 PO; PANT40TA4 PO; POLY255P2 PO; SENN8.6T73 PO
--- NOTE | 2017-05-10 11:00 | NUR ---
Patient admitted from acute rehab [facility]. Patient noted to have abnormal labs with a Creatinine level of 4.5 and BUN 31. Patient had OriF ON 05/08/17 of right hip. Patient reports pain in hip as well as longer back. Patient given ice. Patient is Dr. Haddad patient. To be evaluated by PT. Patient noted to have distended bladder. Scanned and noted 1000 ml. MD to be notified to get order for watson catheter. IV to be started as well upon admitting orders. Patient BP is on the lower end of normal. On 2 liters nasal cannula saturation at 98%. Patient to be NPO due to ileus and constipation. Patient aware of plan of care. Will await orders.
[2017-05-10 11:30] VITALS: BP 105/60
[2017-05-10] MEDS ORDERED: ONDANSETRON 4 MG/2 ML VIAL IV PRN (14:30)
--- NOTE | 2017-05-10 14:58 | NUR ---
Cloud catheter inserted 1500 ml output. IV inserted as well.
[2017-05-10] MEDS: HYDROMORPHONE 1 MG/1 ML DISP.SYRIN IV PRN (15:09)
[2017-05-10] MEDS: IV D5/ 0.9% NACL 1,000 ML IV PRN (15:20)
[2017-05-10 15:32] VITALS: BP 116/81
[2017-05-10] MEDS ORDERED: ACETAMINOPHEN 650 MG SUPP.RECT RC PRN (16:30)
[2017-05-10] MEDS ORDERED: LORAZEPAM 2 MG/1 ML VIAL IV PRN (16:30)
[2017-05-10] MEDS ORDERED: ALBUTEROL SULFATE 2.5 MG/3 ML NEBU NEB PRN (16:30)
--- NOTE | 2017-05-10 19:30 | NUR ---
RECEIVED PATIENT LAYING IN BED COMFORTABLY. LIGHTS WERE TURNED OFF BECAUSE PATIENT IS SENSITIVE TO LIGHT. A&OX4. ABLE TO MAKE NEEDS KNOWN. BODY ASSESSMENT DONE. NOTED COVERED INCISION FROM A RIGHT HIP SURGERY. DRESSING HAS RED/PINK DRAINAGE. PATIENT IS ON 2L O2 NC. SAFETY INITIATED. CALL LIGHT WITHIN REACH. WILL CONTINUE TO MONITOR.
[2017-05-10 20:00] VITALS: BP 98/54
[2017-05-10 22:45] LABS: *BILIRUBIN,URIN NEGATIVE (NEGATIVE); *BLOOD, URINE 2+ (NEGATIVE); *CLARITY,URINE SLIGHTLY CLOUDY (CLEAR); *KETONES,URINE NEGATIVE (NEGATIVE); *PROTEIN,URINE TRACE (NEGATIVE); *UROBILINOGEN,URINE 0.2 E.U./dl (NORMAL); LEUKOCYTE ESTERASE ,URINE TRACE (NEGATIVE); NITRITE, URINE NEGATIVE (NEGATIVE); PH,URINE 5.5 (5.0-8.0); UGLUCOSE NEGATIVE (NEGATIVE)
[2017-05-10 22:46] LABS: *COLOR,URINE LIGHT YELLOW (YELLOW)
[2017-05-10 22:50] LABS: BACTERIA,URINE FEW /HPF (NONE SEEN); RBC,URINE 20-50 /HPF (0-3); SQUAMOUS EPITHELIAL CELL,UR FEW /HPF (NONE SEEN)
[2017-05-11] VITALS (10 sets, daily range): BP systolic 90–109; BP diastolic 56–70
[2017-05-11] MEDS: IV D5/ 0.9% NACL 1,000 ML IV PRN ×2 (02:42→15:48)
--- NOTE | 2017-05-11 07:15 | NUR ---
PATIENT SLEPT INTERMITTENTLY T/O SHIFT. NO ACUTE DISTRESS NOTED. NO CHANGES T/O SHIFT. DVT IN PLACE. WYATT CARE PROVIDED. WYATT IS INTACT AND PATENT. ALL NEEDS MET. SAFETY AND COMFORT MAINTAINED T/O SHIFT.
[2017-05-11] MEDS: HYDROMORPHONE 1 MG/1 ML DISP.SYRIN IV PRN ×2 (08:56→12:35)
[2017-05-11] MEDS: PANTOPRAZOLE SODIUM 40 MG VIAL IV SCH (08:56)
[2017-05-11] MEDS ORDERED: IOHEXOL 300MG/ML 100 ML INFUS..BTL ONE (09:09)
[2017-05-11] MEDS ORDERED: BARIUM SULFATE 450 ML ORAL.SUSP ONE (09:10)
[2017-05-11] MEDS ORDERED: IV NORMAL SALINE 250 ML IV ONE (09:10)
[2017-05-11] MEDS ORDERED: NEUTRA PHOS PACKET PO ONE (16:30)
--- NOTE | 2017-05-11 19:30 | NUR ---
RECEIVED PATIENT, ALERT, RESTING IN BED, IN NO ACUTE DISTRESS. BLOOD TRANSFUSING, NO ADVERSE REACTION NOTED. SAFETY MEASURES IN PLACE, CALL LIGHT WITHIN REACH, BED ALARM ON. WILL CONTINUE TO MONITOR.
--- NOTE | 2017-05-11 21:30 | NUR ---
BLOOD TRANSFUSION COMPLETE. PT TOLERATED TRANSFUSION WELL, VS STABLE, PT AFEBRILE, ALERT, IN NO ACUTE DISTRESS. WILL CONTINUE TO MONITOR.
[2017-05-12 05:00] VITALS: BP 98/64
--- NOTE | 2017-05-12 06:00 | NUR ---
Patient slept well, in no acute distress. IVF running, no infiltration noted. Cloud cath intact/patent draining yellow urine. No significant change in status throughout the shift. Call light within reach, bed alarm on. Will continue to monitor.
[2017-05-12 06:37] LABS: BASOPHILS % (AUTO) 0.5 % (0.0-2.0); EOSINOPHILS # (AUTO) 0.2 K/uL (0.0-0.7); EOSINOPHILS % (AUTO) 3.3 % (0.0-7.0); HEMATOCRIT 29.4 % (37-47); HEMOGLOBIN 10.3 G/DL (12.0-16.0); LYMPHOCYTES # (AUTO) 0.8 K/UL (0.8-4.8); LYMPHOCYTES % (AUTO) 11.2 % (20.5-51.5); MEAN CORPUSCULAR HEMOGLOBIN 32.2 UUG (27.0-31.0); MEAN CORPUSCULAR HGB CONC 35 g/dL (32.0-37.0); MEAN CORPUSCULAR VOLUME 92.2 FL (81.0-99.0); MONOCYTES # (AUTO) 0.7 K/UL (0.1-1.30); MONOCYTES % (AUTO) 9.8 % (0.0-11.0); NEUTROPHILS % (AUTO) 75.2 % (38.5-71.5); PLATELET COUNT (AUTO) 193 K/UL (150-450); RED BLOOD CELL COUNT(AUTO) 3.19 MIL/UL (4.2-5.4); WHITE BLOOD COUNT (AUTO) 6.7 K/UL (4.0-11.2)
[2017-05-12 07:28] LABS: ALANINE AMINOTRANSFERASE 11 U/L (14-59); ALKALINE PHOSPHATASE 61 U/L (50-136); ASPARTATE AMINOTRANSFERASE 22 U/L (15-37); BILIRUBIN,TOTAL 0.8 mg/dL (0.2-1.0); CARBON DIOXIDE 28 mmol/L (21-32); CHLORIDE 105 mmol/L (98-107); CREATININE 0.6 mg/dL (0.6-1.3); GLUCOSE 103 mg/dL (74-106); MAGNESIUM 1.9 mg/dL (1.8-2.4); PHOSPHOROUS 1.5 mg/dL (2.5-4.9); POTASSIUM 3.6 mmol/L (3.5-5.1); TOTAL PROTEIN, SERUM 5.1 g/dL (6.4-8.2); UREA NITROGEN, BLOOD 7 mg/dL (7-18)
--- NOTE | 2017-05-12 07:30 | NUR ---
RECEIVED REPORT FROM SAP PROJECT MANAGER NURSE, PATIENT IN BED AWAKE, NO EVIDENCE OF DISTRESS NOTED, SIDE RAILS UP X2, BED IN LOW POSITION
[2017-05-12] MEDS: PANTOPRAZOLE SODIUM 40 MG VIAL IV SCH (08:56)
[2017-05-12] MEDS ORDERED: NEUTRA PHOS PACKET PO ONE (09:30)
[2017-05-12] MEDS: HYDROMORPHONE 1 MG/1 ML DISP.SYRIN IV PRN (09:34)
[2017-05-12] MEDS ORDERED: MULT1TAB73 PO (11:43)
[2017-05-12] MEDS ORDERED: CALC-555 PO (11:43)
[2017-05-12] MEDS ORDERED: ALBU2.5V7 NEB (11:43)
[2017-05-12 12:00] VITALS: BP 132/73
--- NOTE | 2017-05-12 12:00 | NUR ---
PATIENT WORKED WITH PHYSICAL THERAPY, TOLERATED WELL THEN WENT TO HAVE A CT SCAN.
[2017-05-12] MEDS: IV D5/ 0.9% NACL 1,000 ML IV PRN (12:21)
--- NOTE | 2017-05-12 14:13 | NUR ---
The patient will be discharged today back to [facility] per Dr. Garcia. Spoke to Saida from [facility] and she confirmed that they will re-admit the patient today. Left a message to the patient's daughter, Amanda [ ], about the transfer. Her RN, Gina, is aware of her discharge plan and will call the unit for the report.
--- NOTE | 2017-05-12 15:00 | NUR ---
REPORT CALLED TO ACUTE REHAB, NO ACUTE DISTRESS IN PATIENT, PATIENT IS STABLE.
[2017-05-12 15:47] VITALS: BP 118/72
--- NOTE | 2017-05-12 15:50 | NUR ---
PATIENT WAS TRANSFERRED TO ACUTE REHAB WITH BED. TOLERATED TRANSFER WELL.
== END 2017-05-12 16:05 | DRG 682 ==
LOC: MED 10:45
PROVIDERS: ADMIT Internal Medicine; ATTEND Internal Medicine
DX: N17.0 Acute kidney failure with tubular necrosis (principal); E43 Unspecified severe protein-calorie malnutrition; D68.59 Other primary thrombophilia; E87.1 Hypo-osmolality and hyponatremia; J98.11 Atelectasis; J90 Pleural effusion, not elsewhere classified; D72.829 Elevated white blood cell count, unspecified; E83.39 Other disorders of phosphorus metabolism; E83.51 Hypocalcemia; E87.6 Hypokalemia; Z96.641 Presence of right artificial hip joint; R26.2 Difficulty in walking, not elsewhere classified; Z74.09 Other reduced mobility; Z87.891 Personal history of nicotine dependence; D64.9 Anemia, unspecified; T39.395A Adverse effect of other nonsteroidal anti-inflammatory drugs [NSAID], initial encounter; Y92.009 Unspecified place in unspecified non-institutional (private) residence as the place of occurrence of the external cause; K44.9 Diaphragmatic hernia without obstruction or gangrene; N13.30 Unspecified hydronephrosis; D25.2 Subserosal leiomyoma of uterus; K21.9 Gastro-esophageal reflux disease without esophagitis; M47.814 Spondylosis without myelopathy or radiculopathy, thoracic region; M47.816 Spondylosis without myelopathy or radiculopathy, lumbar region; M41.9 Scoliosis, unspecified; E11.65 Type 2 diabetes mellitus with hyperglycemia; N85.4 Malposition of uterus; K42.9 Umbilical hernia without obstruction or gangrene; Z85.828 Personal history of other malignant neoplasm of skin
CPT/HCPCS: 36415; 71250; 83735; 84100; 85025; 86850; 86900; 86901; 86920; 87086; 97110; 97116; 97161; 97530; C9113; J1170; J2060; J2405; J7042; J7050; P9016-BL; P9021; Q9951; Q9967

== ENCOUNTER 2018-02-13 20:04 | Inpatient (IN) | payer MEDICARE, OTHER ==
[~2018-02-13] VITALS: Ht 154.9 cm; Wt 49.9 kg
[~2018-02-13 20:04] MED LIST changes: +ALBU2.5V7 NEB; +CALC-555 PO; -METO-295 PO; +MULT1TAB73 PO
[2018-02-13] MEDS ORDERED: CEFD300C3 PO (20:21)
--- NOTE | 2018-02-13 20:21 | NUR ---
Patient brought in by rescue, c/o dizziness x 1 week, reports to have fallen at least 3 times at home, had an ear infection and was given antibiotics, c/o shortness of breath.
--- NOTE | 2018-02-13 20:24 | NUR ---
Dr. Velasquez at bedside for MSE.
[2018-02-13] MEDS ORDERED: IV NORMAL SALINE 1000 ML BAG IV ONE (20:30)
[2018-02-13 20:58] LABS: BASOPHILS # (AUTO) 0.1 K/uL (0.0-8.0); BASOPHILS % (AUTO) 0.5 % (0.0-2.0); EOSINOPHILS # (AUTO) 0.4 K/uL (0.0-0.7); EOSINOPHILS % (AUTO) 3.2 % (0.0-7.0); HEMATOCRIT 30.8 % (31.2-41.9); HEMOGLOBIN 10.6 g/dL (10.9-14.3); LYMPHOCYTES % (AUTO) 9.2 % (20.5-51.5); MEAN CORPUSCULAR HGB CONC 35 g/dL (32.3-35.6); MEAN CORPUSCULAR VOLUME 92.7 fL (75.5-95.3); MONOCYTES # (AUTO) 0.7 K/uL (2.0-10.0); MONOCYTES % (AUTO) 6.2 % (0.0-11.0); NEUTROPHILS # (AUTO) 8.8 K/uL (1.8-8.9); NEUTROPHILS % (AUTO) 80.9 % (38.5-71.5); PLATELET COUNT (AUTO) 63 K/uL (179-408); RED BLOOD CELL COUNT(AUTO) 3.32 MIL/uL (3.63-4.92); WHITE BLOOD COUNT (AUTO) 10.9 K/uL (3.8-11.8)
--- NOTE | 2018-02-13 21:00 | NUR ---
Xray at bedside.
[2018-02-13 21:15] LABS: CARBON DIOXIDE 23 mmol/L (21-32); CHLORIDE 94 mmol/L (98-107); CREATININE 0.8 mg/dL (0.6-1.3); GLUCOSE 109 mg/dL (74-106); POTASSIUM 4.3 mmol/L (3.5-5.1); UREA NITROGEN, BLOOD 21 mg/dL (7-18)
[2018-02-13 21:27] LABS: ALANINE AMINOTRANSFERASE 26 U/L (14-59); ALKALINE PHOSPHATASE 798 U/L (50-136); ASPARTATE AMINOTRANSFERASE 85 U/L (15-37); BILIRUBIN,DIRECT 0.2 mg/dL (0.0-0.2); BILIRUBIN,TOTAL 0.8 mg/dL (0.2-1.0); LIPASE 119 U/L (73-393); TOTAL PROTEIN, SERUM 6.3 g/dL (6.4-8.2)
--- NOTE | 2018-02-13 21:50 | NUR ---
Dr. Velasquez on panel call with Dr. Wagner.
[2018-02-13] MEDS ORDERED: Z GUARD REMEDY PASTE 57 GM TUBE TOP PRN (22:00)
[2018-02-13] MEDS ORDERED: HYDROCODONE/APAP 5-325MG TABLET PO PRN (22:00)
[2018-02-13] MEDS ORDERED: MAGNESIUM HYDROXIDE 30 ML LIQUID UDC PO PRN (22:00)
[2018-02-13 22:31] LABS: *BILIRUBIN,URIN NEGATIVE (NEGATIVE); *BLOOD, URINE Trace-intact (NEGATIVE); *CLARITY,URINE CLEAR (CLEAR); *COLOR,URINE YELLOW (YELLOW); *KETONES,URINE 1+ (NEGATIVE); *PROTEIN,URINE NEGATIVE (NEGATIVE); *UROBILINOGEN,URINE 0.2 E.U./dl (NORMAL); LEUKOCYTE ESTERASE ,URINE NEGATIVE (NEGATIVE); NITRITE, URINE NEGATIVE (NEGATIVE); PH,URINE 5.5 (5.0-8.0); UGLUCOSE NEGATIVE (NEGATIVE)
[2018-02-13 22:40] LABS: BACTERIA,URINE NONE SEEN /HPF (NONE SEEN); SQUAMOUS EPITHELIAL CELL,UR FEW /HPF (NONE SEEN); TRANSITIONAL EPI CELLS,URINE FEW /LPF (NONE SEEN); WBC,URINE 0-3 /HPF (0-3)
--- NOTE | 2018-02-13 22:50 | NUR ---
Patient started feeling nauseous and vomitted. MD notified.
--- NOTE | 2018-02-13 22:50 | NUR ---
Passed SBAR report to Lorena DRUAN Tele.
[2018-02-13] MEDS ORDERED: KETOROLAC TROMETHAMINE 15 MG INJ ONE (22:57)
[2018-02-13] MEDS ORDERED: KETOROLAC TROMETHAMINE 15 MG INJ IVP ONE (23:00)
[2018-02-13] MEDS ORDERED: ONDANSETRON IV *ER 4 MG/2 ML VIAL IV ONE (23:00)
--- NOTE | 2018-02-13 23:10 | NUR ---
NEW ADMIT FROM ER, ADMITTED FOR DEHYDRATION. PATIENT IS AAOX3 C/O DIZZINESS ON STANDING. VSS WNL, SAFETY MEASURES IN PLACE. BED ALARM ON, CALL LIGHT LEFT WITHIN PATIENT'S REACH
[2018-02-13 23:12] LABS: BAND % (MANUAL) 30 % (0-10); EOSINOPHILS % (MANUAL) 4 % (0-8); LYMPHOCYTES % (MANUAL) 8 % (20-40); METAMYELOCYTES % 4 % (0-1); MYELOCYTES % 9 % (0-0); NEUTROPHILS % (MANUAL) 43 % (42-75)
[2018-02-13 23:14] LABS: MONOCYTES % (MANUAL) 0 % (2-10)
[2018-02-14] VITALS (15 sets, daily range): BP systolic 92–125; BP diastolic 45–71
[2018-02-14] MEDS: IV NS 1000 ML 1,000 ML IV PRN ×2 (00:18→17:59)
[2018-02-14] MEDS: TRAMADOL HCL 50 MG TABLET PO PRN ×2 (05:06→15:53)
--- NOTE | 2018-02-14 06:24 | NUR ---
PATIENT IS ASLEEP, NO C/O PAIN OR ANY DISTRESS AT PRESENT. PRN PAIN MEDS GIVEN X1, NO C/O DIZZINESS. BP WITHIN NORMAL LIMITS. NO FURTHER CHANGES IN STATUS. SAFETY MEASURES MAINTAINED AT ALL TIMES
[2018-02-14 06:56] LABS: BASOPHILS % (AUTO) 0.5 % (0.0-2.0); EOSINOPHILS # (AUTO) 0.4 K/uL (0.0-0.7); EOSINOPHILS % (AUTO) 4.8 % (0.0-7.0); LYMPHOCYTES # (AUTO) 0.8 K/uL (20.0-40.0); LYMPHOCYTES % (AUTO) 8.9 % (20.5-51.5); MEAN CORPUSCULAR HEMOGLOBIN 32.4 uug (24.7-32.8); MEAN CORPUSCULAR HGB CONC 35 g/dL (32.3-35.6); MEAN CORPUSCULAR VOLUME 92.3 fL (75.5-95.3); MONOCYTES # (AUTO) 0.5 K/uL (2.0-10.0); MONOCYTES % (AUTO) 6.2 % (0.0-11.0); NEUTROPHILS # (AUTO) 6.8 K/uL (1.8-8.9); NEUTROPHILS % (AUTO) 79.6 % (38.5-71.5); RED BLOOD CELL COUNT(AUTO) 2.92 MIL/uL (3.63-4.92); WHITE BLOOD COUNT (AUTO) 8.6 K/uL (3.8-11.8)
[2018-02-14 06:57] LABS: CARBON DIOXIDE 22 mmol/L (21-32); CHLORIDE 99 mmol/L (98-107); CREATININE 0.8 mg/dL (0.6-1.3); GLUCOSE 101 mg/dL (74-106); MAGNESIUM 2.2 mg/dL (1.8-2.4); POTASSIUM 4.4 mmol/L (3.5-5.1); UREA NITROGEN, BLOOD 18 mg/dL (7-18)
[2018-02-14 07:05] LABS: HEMATOCRIT 26.9 % (31.2-41.9); HEMOGLOBIN 9.5 g/dL (10.9-14.3)
[2018-02-14 07:07] LABS: PLATELET COUNT (AUTO) 49 K/uL (179-408)
--- NOTE | 2018-02-14 07:41 | NUR ---
RECEIVED SHIFT REPORT FROM ECONOMIC HISTORIAN NURSE. PATIENT RESTING COMFORTABLY IN BED AT THIS TIME. NO S/S OF DISTRESS. STABLE CONDITION. IVF RUNNING. PATIENT COMPLAINS OF HEADACHE BUT VERBALIZES THAT IT IS TOLERABLE WITHOUT PAIN MEDICATION. AMBULATORY STATUS IS WEAK. BED ALARM IS ON. WILL CONTINUE TO MONITOR. BED IN LOCKED/LOW POSITION, SIDE RAILS UP X2.
[2018-02-14] MEDS ORDERED: IV NORMAL SALINE 100 ML ONE (09:26)
[2018-02-14] MEDS ORDERED: IOHEXOL 300MG/ML 100 ML INFUS..BTL ONE (09:26)
[2018-02-14 09:34] LABS: BAND % (MANUAL) 17 % (0-10); EOSINOPHILS % (MANUAL) 5 % (0-8); LYMPHOCYTES % (MANUAL) 14 % (20-40); METAMYELOCYTES % 3 % (0-1); MONOCYTES % (MANUAL) 7 % (2-10); MYELOCYTES % 4 % (0-0); NEUTROPHILS % (MANUAL) 50 % (42-75)
--- NOTE | 2018-02-14 13:57 | NUR ---
PATIENT HAS BEEN STABLE. COMPLAINING OF HEADACHE. PAIN MANAGEMENT HAS BEEN PROVIDED. PATIENT WENT FOR CT OF HEAD AND CHEST. CONSENT SIGNED FOR CTA FOR CONTRAST. ABNORMAL RESULT CALLED BY RADIOLOGIST FROM CT HEAD. NOTIFIED.
[2018-02-14] MEDS ORDERED: DEXAMETHASONE SOD PHOSPHATE 10 MG INJ IV SCH (14:45)
--- NOTE | 2018-02-14 14:50 | NUR ---
CT HEAD SHOWS ACUTE ON CHRONIC INTRACRANIAL HEMORRHAGE. STROKE SET PLACED IN INTERVENTIONS AND COMPLETED. NIHSS ALSO COMPLETED IN INTERVENTIONS.
[2018-02-14] MEDS ORDERED: DEXAMETHASONE SOD PHOSPHATE 4 MG INJ IV SCH (15:00)
--- NOTE | 2018-02-14 15:00 | NUR ---
ORDERED TO HAVE PATIENT TRANSFERRED TO CCU DUE TO RESULTS OF CT HEAD. ALSO ORDERED DEXAMETHASONE 4 MG IV Q6H. ORDERS PLACED. PATIENT WILL BE TRANSFERRED INTO CCU BED 4.
--- NOTE | 2018-02-14 15:20 | NUR ---
Patient in from Medical surgical floor. AAOX4. vital signs stable on 4 liters nasal canula saturation. As reported orders to transfer patient. No active hemorrhagic stroke orders, and a call made to attending physician Dr. Wagner, awaiting call back. Addendum: 02/14/18 at 1910 by IZZY MERCADO RN Report received from rn. Singh.
--- NOTE | 2018-02-14 15:50 | NUR ---
Spoke with Dr. Wagner and as stated, he will soon have input order set for hemorrhagic stroke.
--- NOTE | 2018-02-14 17:55 | NUR ---
patient with saturation in the mid-80's change to face mask 10 liter and still with periods of desaturation down to mid-80's. Addendum: 02/14/18 at 1801 by IZZY MERCADO RN Patient also with c/o shortness of breath.
[2018-02-14 18:08] LABS: ABG BASE EXCESS -5.6 mmol/L; ABG HCO3 18.1 mmol/L; ABG PCO2 29.1 mmHg (35.0-45.0); ABG PH 7.411 (7.350-7.450); ABG SITE RIGHT RADIAL; ABG TOTAL HEMOGLOBIN 9.8 G/dL (12.0-16.0); COHb 0.8 % (0.5-1.5); MetHb 0.4 % (0.0-1.5); O2Hb 93.6 % (94.0-97.0); VENT MODE Mask - Simple 10L
--- NOTE | 2018-02-14 18:20 | NUR ---
Attending physician notified of patient's c/o SOB and saturation in the mid-80's and that patient was change from Nasal Canula 6 liter to Face mask 10L with no improvement. also notified of ABG results. Orders for stat chest X-ray received.
--- NOTE | 2018-02-14 19:09 | NUR ---
Patient left on High flow. report given to rn. Pedraza.
[2018-02-14] MEDS ORDERED: PHYTONADIONE 10 MG/1 ML AMPUL SQ ONE (19:15)
--- NOTE | 2018-02-14 19:30 | NUR ---
Alert, extremely anxious and restless. Multiple repetitive requests. Requiring a lot of TLC and reassurance. Plans of care and nursing care procedures explained. Refusing high flow O2 despite explanations for its necessity. Placed on nasal cannula and will monitor closely. Seen and evaluated by Dr. Moncada. MD spoke to pt and plans of care discussed. Pt expresses understanding. Comfort measures and safety/fall precautions observed at all times. Please see CCU flowsheet for full assessment and clinical data.
[2018-02-14] MEDS ORDERED: CEFTRIAXONE 1 G VIAL IM SCH (19:45)
[2018-02-14] MEDS: ACETAMINOPHEN 325 MG TABLET PO PRN (19:46)
[2018-02-14] MEDS: DOXEPIN 10 MG CAPSULE PO SCH (19:47)
[2018-02-14] MEDS: LORAZEPAM 1 MG TABLET PO SCH (19:47)
[2018-02-14] MEDS: LEVETIRACETAM IV 500 MG in IV DEXTROSE 5% 100 ML IV SCH (20:07)
--- NOTE | 2018-02-14 20:15 | NUR ---
Daughter here from [facility]. Condition update and care plans explained. Pt to get blood products, consent signed. Dinner served. Pt swallows well. Aspiration precautions maintained.
[2018-02-14 20:46] LABS: THYROID STIMULATING HORMONE 1.246 mIU/mL (0.358-3.740)
[2018-02-14] MEDS: PANTOPRAZOLE SODIUM 40 MG VIAL IV SCH (21:35)
[2018-02-14] MEDS: CEFTRIAXONE 1 G in IV DEXTROSE 5% 50 ML IV SCH (21:36)
--- NOTE | 2018-02-14 22:00 | NUR ---
Resting, calm. O2 sat down requiring non-rebreather mask when asleep. Readily desats as low as 78% when pt takes O2 off.
[2018-02-15] VITALS (24 sets, daily range): BP systolic 80–124; BP diastolic 35–81
--- NOTE | 2018-02-15 02:15 | NUR ---
Transfusion of platelets and cryo completed, no transfusion reactions noted. Blood Bank aware unable to document cryo. blood products in [facility]. Will check AM labs.
--- NOTE | 2018-02-15 03:15 | NUR ---
Woke up from sleep, agitated, screaming, crying saying "Enough of these! Don't do these anymore. I'm tired." Asking for Dr. Wagner and Dr. Moncada by name. Pt aware of self and place. Pulled out EKG wires and gown, kept pulling out O2. Noted rapid desat when off O2. Reassured, stayed with pt for sometime holding hands. Encouraged to speak to doctors about care/interventions/ Pt is DNR; [employer] Direct[employer] Form brought in by daughter last night and copy placed in chart. Close observation at all times.
[2018-02-15 05:25] LABS: BASOPHILS % (AUTO) 0.3 % (0.0-2.0); EOSINOPHILS # (AUTO) 0.2 K/uL (0.0-0.7); EOSINOPHILS % (AUTO) 2.1 % (0.0-7.0); HEMATOCRIT 26.2 % (31.2-41.9); HEMOGLOBIN 9.1 g/dL (10.9-14.3); LYMPHOCYTES # (AUTO) 0.7 K/uL (20.0-40.0); LYMPHOCYTES % (AUTO) 7.6 % (20.5-51.5); MEAN CORPUSCULAR HEMOGLOBIN 32.1 uug (24.7-32.8); MEAN CORPUSCULAR HGB CONC 35 g/dL (32.3-35.6); MEAN CORPUSCULAR VOLUME 92.3 fL (75.5-95.3); MONOCYTES # (AUTO) 0.6 K/uL (2.0-10.0); MONOCYTES % (AUTO) 6.6 % (0.0-11.0); NEUTROPHILS # (AUTO) 7.2 K/uL (1.8-8.9); NEUTROPHILS % (AUTO) 83.4 % (38.5-71.5); PLATELET COUNT (AUTO) 74 K/uL (179-408); RED BLOOD CELL COUNT(AUTO) 2.84 MIL/uL (3.63-4.92); WHITE BLOOD COUNT (AUTO) 8.6 K/uL (3.8-11.8)
[2018-02-15 05:41] LABS: ALANINE AMINOTRANSFERASE 38 U/L (14-59); ALKALINE PHOSPHATASE 694 U/L (50-136); ASPARTATE AMINOTRANSFERASE 97 U/L (15-37); BILIRUBIN,TOTAL 0.6 mg/dL (0.2-1.0); CARBON DIOXIDE 25 mmol/L (21-32); CHLORIDE 102 mmol/L (98-107); CREATININE 0.8 mg/dL (0.6-1.3); GLUCOSE 103 mg/dL (74-106); POTASSIUM 4.5 mmol/L (3.5-5.1); TOTAL PROTEIN, SERUM 5.9 g/dL (6.4-8.2); UREA NITROGEN, BLOOD 12 mg/dL (7-18)
[2018-02-15 05:43] LABS: CARBON DIOXIDE 22 mmol/L (21-32); CHLORIDE 102 mmol/L (98-107); CREATININE 0.7 mg/dL (0.6-1.3); GLUCOSE 101 mg/dL (74-106); MAGNESIUM 2.2 mg/dL (1.8-2.4); PHOSPHOROUS 2.6 mg/dL (2.5-4.9); POTASSIUM 4.4 mmol/L (3.5-5.1); UREA NITROGEN, BLOOD 12 mg/dL (7-18); URIC ACID 4.5 mg/dL (2.6-6.0)
[2018-02-15 05:53] LABS: THYROID STIMULATING HORMONE 0.891 mIU/mL (0.358-3.740)
[2018-02-15] MEDS: ONDANSETRON 4 MG/2 ML VIAL IV PRN ×3 (05:55→23:16)
--- NOTE | 2018-02-15 06:00 | NUR ---
Episode of nausea relieved with IV Zofran. No emesis, now asking for doughnuts. Calm and cooperative. AM care tolerated well. Refuses SCD; moves all extremities well. Please see CCU flowsheet for trends and clinical data.
[2018-02-15] MEDS: TRAMADOL HCL 50 MG TABLET PO PRN ×2 (07:33→16:54)
[2018-02-15] MEDS: PANTOPRAZOLE SODIUM 40 MG VIAL IV SCH (08:38)
[2018-02-15] MEDS: LEVETIRACETAM IV 500 MG in IV DEXTROSE 5% 100 ML IV SCH ×2 (08:49→20:44)
--- NOTE | 2018-02-15 08:52 | NUR ---
Attending physician Dr. zuluaga in the unit to examine patient; full report given, also perform ear examination as requested by patient who's been complaining of ear infection. Orders to transfuse receive. See OHX. Addendum: 02/15/18 at 0930 by IZZY MERCADO RN informed of low saturation with nasal canula 6 liter and face mask 10L alternating. As stated by . "respiratory not an issue at this admission" and ok with current saturation.
--- NOTE | 2018-02-15 11:00 | NUR ---
Dr. Wagner notified on persistent blood pressure in the low 80 with MAP between 60-65 Orders to continue monitoring received.
--- NOTE | 2018-02-15 12:45 | NUR ---
Dr. Porras Neurology services in the unit to examine patient, report given. Orders for Ct head with no contrast received.
--- NOTE | 2018-02-15 14:00 | NUR ---
PT WENT DOWN FOR CT SCAN VIA BED ACCOMPANIED BY TECH AND RN. TOLERATED WELL. CONDITION IS STABLE.
--- NOTE | 2018-02-15 14:18 | NUR ---
PT's care endorse to rn. Lyndsay Zimmer. Orders reviewed. Addendum: 02/15/18 at 1421 by IZZY MERCADO RN Endorse pending Ct head and transfusion for 2 units of platelets.
--- NOTE | 2018-02-15 14:30 | NUR ---
RECIEVED REPORT FROM IZZY DURAN. PT ON 100% NON-REBREATHER. O2SAT IS 86-95%.
--- NOTE | 2018-02-15 17:00 | NUR ---
PT C/O OF HEADACHES AND REQUESTED FOR SOME PAIN MEDICATION. GIVEN ULTRAM PO.
--- NOTE | 2018-02-15 17:15 | NUR ---
PT UNABLE TO KEEP HER NON-REBREATHER O2 MASK. RESTLESS AND UNABLE TO STAY STILL. ABG ORDERED TO CHECK HER GASES.
--- NOTE | 2018-02-15 17:54 | NUR ---
PT MEHTA IS BETTER BUT C/O OF NAUSEA, NO EMESIS NOTED.
[2018-02-15 17:59] LABS: ABG BASE EXCESS -5.3 mmol/L; ABG HCO3 17.8 mmol/L; ABG PCO2 26.2 mmHg (35.0-45.0); ABG PO2 35.8 mmHg (75.0-100.0); ABG SITE RIGHT RADIAL; ABG TOTAL HEMOGLOBIN 8.7 G/dL (12.0-16.0); COHb 1.3 % (0.5-1.5); O2Hb 65.4 % (94.0-97.0); VENT MODE Nasal Cannula
--- NOTE | 2018-02-15 18:00 | NUR ---
MEDICATED WITH ZOFRAN 4MG SLOW IVP . FEELS A LITTLE BETTER.
--- NOTE | 2018-02-15 18:00 | NUR ---
1 UNIT OF PLATELETPHORESIS STARTED ORDERED, GIVEN MANUALLY THE COMPUTER IS UNABLE TO REGISTER THE BLOOD. TEMP IS 98.7F.
--- NOTE | 2018-02-15 18:15 | NUR ---
PT PLACED BACK ON 100% NONREBREATHER MASK. O2SAT IS 98%.
--- NOTE | 2018-02-15 18:18 | NUR ---
PT REFUSED TO EAT DINNER AT THIS TIME.
--- NOTE | 2018-02-15 19:00 | NUR ---
PT IS DOSING OFF WELL. PLATELET TRANSFUSION STILL IN PROGRESS. LATEST TEMP 99.5F
--- NOTE | 2018-02-15 20:00 | NUR ---
patient tolerated 1st unit of platelet,dewayne borges at bedside and spoked with patient daughter panda and to patient with regards to patient condition and plan of treatment . delphine aware about the repeat CT head and U/S abdomen results that was done today .
--- NOTE | 2018-02-15 20:30 | NUR ---
warm patient dinner ,assisted with dinner ,hob up .aspiration precaution observed patient ate very little<50% and verbalized she has lots of gas ,line soda given and tolerated she drinks moderately but eats very little .continue to monitor and encourage to eat.
[2018-02-15] MEDS: DOXEPIN 10 MG CAPSULE PO SCH (20:43)
[2018-02-15] MEDS: LORAZEPAM 1 MG TABLET PO SCH (20:43)
[2018-02-15] MEDS: CEFTRIAXONE 1 G in IV DEXTROSE 5% 50 ML IV SCH (20:44)
[2018-02-15] MEDS: FOLIC ACID 1 MG TABLET PO SCH (20:45)
--- NOTE | 2018-02-15 21:05 | NUR ---
2 nd unit of platelet started and condition to monitor bllod transfusion reaction .hob up and keep reminding patient to keep non rebreather mask on .
--- NOTE | 2018-02-15 23:16 | NUR ---
patient keeps on belching and claim her stomach lots of gas and nauseous given Zofran.
[2018-02-15] MEDS: ACETAMINOPHEN 325 MG TABLET PO PRN (23:49)
[2018-02-16] VITALS (21 sets, daily range): BP systolic 80–139; BP diastolic 42–93
--- NOTE | 2018-02-16 02:26 | NUR ---
noted patient keeps removing non rebreather mask ,and saturation drops 88% ,reeducated and reinforced,keeps on reminding patient not to removed non rebreather mask patient get confused and then settles back and goes back to sleep . saturation 100% on non rebreather mask 15 l/min . rr 19.
--- NOTE | 2018-02-16 04:12 | NUR ---
am care done ,patient with generalized body bruising ,discoloration but no open wounds .changed soiled linens and gown . lotion applied to back area and extremities .turned and reposition ,offload back with pillow and elevated upper and lower extremities with pillows ,scds used ,heels off bed .
[2018-02-16 05:24] LABS: BASOPHILS % (AUTO) 0.2 % (0.0-2.0); EOSINOPHILS # (AUTO) 0.2 K/uL (0.0-0.7); EOSINOPHILS % (AUTO) 2.1 % (0.0-7.0); HEMATOCRIT 23.7 % (31.2-41.9); LYMPHOCYTES # (AUTO) 1.1 K/uL (20.0-40.0); LYMPHOCYTES % (AUTO) 10.7 % (20.5-51.5); MEAN CORPUSCULAR HEMOGLOBIN 31.3 uug (24.7-32.8); MEAN CORPUSCULAR HGB CONC 34 g/dL (32.3-35.6); MEAN CORPUSCULAR VOLUME 92.5 fL (75.5-95.3); MONOCYTES # (AUTO) 0.7 K/uL (2.0-10.0); MONOCYTES % (AUTO) 6.8 % (0.0-11.0); NEUTROPHILS # (AUTO) 8.6 K/uL (1.8-8.9); NEUTROPHILS % (AUTO) 80.2 % (38.5-71.5); PLATELET COUNT (AUTO) 108 K/uL (179-408); RED BLOOD CELL COUNT(AUTO) 2.57 MIL/uL (3.63-4.92); WHITE BLOOD COUNT (AUTO) 10.8 K/uL (3.8-11.8)
[2018-02-16 05:29] LABS: ALANINE AMINOTRANSFERASE 53 U/L (14-59); ALKALINE PHOSPHATASE 639 U/L (50-136); ASPARTATE AMINOTRANSFERASE 118 U/L (15-37); BILIRUBIN,TOTAL 0.3 mg/dL (0.2-1.0); CARBON DIOXIDE 22 mmol/L (21-32); CHLORIDE 98 mmol/L (98-107); CREATININE 0.9 mg/dL (0.6-1.3); GLUCOSE 114 mg/dL (74-106); POTASSIUM 4.8 mmol/L (3.5-5.1); TOTAL PROTEIN, SERUM 5.3 g/dL (6.4-8.2); UREA NITROGEN, BLOOD 22 mg/dL (7-18)
[2018-02-16 06:06] LABS: BAND % (MANUAL) 20 % (0-10); EOSINOPHILS % (MANUAL) 1 % (0-8); LYMPHOCYTES % (MANUAL) 9 % (20-40); METAMYELOCYTES % 4 % (0-1); MONOCYTES % (MANUAL) 3 % (2-10); MYELOCYTES % 3 % (0-0); NEUTROPHILS % (MANUAL) 60 % (42-75)
[2018-02-16 08:06] LABS: *IMMUNOGLOBULIN G, SERUM 520 mg/dL (700-1600); IMMUNOGLOBULIN A, SERUM 140 mg/dL (64-422); IMMUNOGLOBULIN M, SERUM 18 mg/dL (26-217)
--- NOTE | 2018-02-16 08:30 | NUR ---
SEEN AND EXAMINED BY DR JETER WITH NEW ORDERS.
[2018-02-16] MEDS ORDERED: LORAZEPAM 0.5 MG TABLET PO PRN (08:45)
[2018-02-16] MEDS ORDERED: IV NS 1000 ML 1,000 ML IV PRN (09:00)
[2018-02-16] MEDS ORDERED: methylPREDNISolone SOD SUCC 125 MG/2 ML VIAL IV ONE (09:00)
--- NOTE | 2018-02-16 09:00 | NUR ---
VENOUS DUPLEX BOTH LOWER EXTREMETIES DONE AT THE BEDSIDE.
[2018-02-16] MEDS: LEVETIRACETAM IV 500 MG in IV DEXTROSE 5% 100 ML IV SCH (09:10)
[2018-02-16] MEDS: FOLIC ACID 1 MG TABLET PO SCH (09:10)
[2018-02-16] MEDS: PANTOPRAZOLE SODIUM 40 MG VIAL IV SCH (09:10)
[2018-02-16] MEDS ORDERED: FUROSEMIDE 40 MG/4 ML VIAL IV ONE (09:15)
[2018-02-16 10:09] LABS: VIT D, 25-HYDROXY 33.9 ng/mL (30.0-100.0)
[2018-02-16 10:09] LABS: A/G RATIO 1.3 (0.7-1.7); ALBUMIN 2.9 g/dL (2.9-4.4); ALPHA-1-GLOBULIN 0.5 g/dL (0.0-0.4); ALPHA-2-GLOBULIN 0.7 g/dL (0.4-1.0); BETA GLOBULIN 0.8 g/dL (0.7-1.3); GAMMA GLOBULIN 0.4 g/dL (0.4-1.8); GLOBULIN, TOTAL 2.3 g/dL (2.2-3.9); M-SPIKE Not Observed g/dL (Not Observed)
[2018-02-16] MEDS ORDERED: IPRATROPIUM BROMIDE 0.5 MG/2.5 ML NEBU NEB PRN (10:15)
[2018-02-16] MEDS ORDERED: ALBUTEROL SULFATE 2.5 MG/3 ML NEBU NEB PRN (10:15)
--- NOTE | 2018-02-16 10:30 | NUR ---
PULMONARY CONSULT WITH DR IRVIN. SEEN AND EXAMINED AND SPOKEN WITH THE DAUGHTER.
[2018-02-16] MEDS: ACETAMINOPHEN 325 MG TABLET PO PRN (10:53)
[2018-02-16] MEDS: ALBUTEROL SULFATE 2.5 MG/3 ML NEBU NEB SCH ×3 (11:59→19:06)
[2018-02-16] MEDS: IPRATROPIUM BROMIDE 0.5 MG/2.5 ML NEBU NEB SCH ×3 (11:59→19:06)
[2018-02-16] MEDS ORDERED: methylPREDNISolone SOD SUCC 125 MG/2 ML VIAL IV SCH ×2 (12:00→14:00)
--- NOTE | 2018-02-16 12:30 | NUR ---
DAUGHTER RANDY REFUSED THE NM WHOLE BODY SCAN ORDERED BY DR IRVIN.
[2018-02-16] MEDS ORDERED: methylPREDNISolone SOD SUCC 40 MG/ML VIAL IV SCH (14:00)
--- NOTE | 2018-02-16 14:16 | NUR ---
STUDY ON HOLD [facility]
[2018-02-16] MEDS ORDERED: ACETAMINOPHEN 325 MG TABLET PO PRN (15:30)
--- NOTE | 2018-02-16 17:00 | NUR ---
DR JETER TALKED TO THE DAUGHTER FOR LENGTH REGARDING PT'S HOSPICE STATUS AND COMFORT MEASURES.
--- NOTE | 2018-02-16 19:30 | NUR ---
ROUNDS MADE PATIENT IN BED AWAKE ,BUT VERY RESTLESS KEEPS REMOVING NON REBREATHER MASK,ICU MONITORS , REORIENTATION AND REINFORCEMENT DONE.RESPIRATORY THERAPIST AT BEDSIDE , PER [facility]IMO RESPIRATORY THERAPIST HE WILL GIVE HER A BREATHING TREATMENT . SHAUN PATIENTS DAUGHTER AT BEDSIDE AND VERIFIED CODE STATUS SHE SAID SHE DONT WANT ANYTHING DONE COMFORT MEASURES ONLY . NO TEST . SHE WANT HER MOTHER TO BE COMFORTABLE AND PAIN FREE .
[2018-02-16] MEDS: LORAZEPAM 2 MG/1 ML VIAL IV PRN ×2 (19:36→22:39)
--- NOTE | 2018-02-16 19:36 | NUR ---
GIVEN ATIVAN 1 MG IV PRN PATIENT VERY RESTLESS ,AGITATED, MOANING.,FACIAL GRIMACE NOTED ,REMOVING MONITORS
--- NOTE | 2018-02-16 20:22 | NUR ---
CALLED NARDA VALE PER DAUGHTERS REQUEST ,SHE WANTS TO SPEAK WITH HER . PEE VALE CALLED BACK AND DAUGHTER SHAUN SPOKED WITH PATIENTS DAUGHTER VIA PHONE .
--- NOTE | 2018-02-16 20:46 | NUR ---
REPORT GIVEN TO ROGER TRIVEDI MOVED PATIENT TO ROOM 204 VIA BED AND PATIENT WENT WITH BELONGINGS GIVEN TO DAUGHTER SHAUN.PATIENT CONDITION REMAINS COMFORT MEASURES .
--- NOTE | 2018-02-16 20:50 | NUR ---
received patient transfer from ccu to room 204, med surg status, for comfort measures only,on non rebreathing mask,continue breathing treatment per RT.family stay at bedside,mouth care given made comfortable.
[2018-02-16] MEDS: DOXEPIN 10 MG CAPSULE PO SCH (21:00)
--- NOTE | 2018-02-16 22:30 | NUR ---
patient very restless, keep removing oxygen and clothes,Ativan 1 mg iv given for agitation.changed oxygen to 6l/m via n/c.re position, oral and skin care given,made patient comfortable.
[2018-02-16] MEDS ORDERED: MORPHINE SULFATE 4 MG/1 ML DISP.SYRIN IV PRN (23:30)
--- NOTE | 2018-02-16 23:30 | NUR ---
patient remains get agitated ,Janet Mas soft water mechanic notified ,and Amanda patient's daughter agree for patient to have Morphine for pain.PRN Morphine 2 mg iv given .reassess in 30 min, patient asleep ,HOB elevated,daughter at bedside.
[2018-02-17] MEDS: LORAZEPAM 2 MG/1 ML VIAL IV PRN (01:12)
--- NOTE | 2018-02-17 02:30 | NUR ---
patient became apneic for 5 minutes, pupils fixed and dilated,no audible heart tones,breath sound for 1 minute,no palpable pulse for 1 minute,no corneal reflexes,patient pronounced at [id number],Janet Mas Parachute Mender. notified.
--- NOTE | 2018-02-17 03:15 | NUR ---
post mortem render, all patient 's belongings gave to family.
--- NOTE | 2018-02-17 05:45 | NUR ---
The remains released to [facility].
[2018-02-17 14:06] LABS: HEPATITIS B SURFACE AB Non Reactive (.); HEPATITIS B SURFACE AG Negative (Negative)
== END 2018-02-17 05:45 | disposition expired | DRG 82 ==
LOC: ER 20:05 → TELE 22:58 → CCU 02-14 15:11 → MED 02-16 20:40
PROVIDERS: ADMIT Internal Medicine; ATTEND Internal Medicine
PROC: 30233R1 Transfusion of Nonautologous Platelets into Peripheral Vein, Percutaneous Approach (ICD-10-PCS; principal; 2018-02-14)
PROC: 30233M1 Transfusion of Nonautologous Plasma Cryoprecipitate into Peripheral Vein, Percutaneous Approach (ICD-10-PCS; 2018-02-15)
PROC: 6A550Z2 Pheresis of Platelets, Single (ICD-10-PCS; 2018-02-15)
DX: S06.6X9A Traumatic subarachnoid hemorrhage with loss of consciousness of unspecified duration, initial encounter (principal); J96.01 Acute respiratory failure with hypoxia; J84.9 Interstitial pulmonary disease, unspecified; D61.818 Other pancytopenia; E87.1 Hypo-osmolality and hyponatremia; Z66 Do not resuscitate; Z51.5 Encounter for palliative care; E86.0 Dehydration; W19.XXXA Unspecified fall, initial encounter; K21.9 Gastro-esophageal reflux disease without esophagitis; Z88.6 Allergy status to analgesic agent; R40.2410 Glasgow coma scale score 13-15, unspecified time; Y92.009 Unspecified place in unspecified non-institutional (private) residence as the place of occurrence of the external cause; Z80.41 Family history of malignant neoplasm of ovary; Z80.1 Family history of malignant neoplasm of trachea, bronchus and lung; K44.9 Diaphragmatic hernia without obstruction or gangrene; R42 Dizziness and giddiness; R29.6 Repeated falls; Z77.22 Contact with and (suspected) exposure to environmental tobacco smoke (acute) (chronic); Z87.81 Personal history of (healed) traumatic fracture; J44.9 Chronic obstructive pulmonary disease, unspecified; R94.8 Abnormal results of function studies of other organs and systems; I62.02 Nontraumatic subacute subdural hemorrhage; Z79.82 Long term (current) use of aspirin; H66.90 Otitis media, unspecified, unspecified ear; D63.8 Anemia in other chronic diseases classified elsewhere; D18.00 Hemangioma unspecified site
CPT/HCPCS: 36415; 36600; 51702; 70030-TC; 70450; 71045; 71275; 76700; 82306; 82533; 82652; 82746; 82784; 83550; 83690; 83735; 83970; 84100; 84155; 84165; 84300; 84443; 84550; 85025; 85730; 86334; 86706; 86803; 86850; 86900; 86901; 87040; 87086; 87340; 92610; 93005; 94640; 94664; 97112; 97530; A4663; C9113; J0696; J1100; J1885; J1940; J1953; J2060; J2270; J2405; J2920; J2930; J3430; J3490; J3590; J7030; J7050; J7060; P9012-BL; P9021; P9035-BL; Q9967